=== PATIENT | female | born 2000 | race Caucasian/White ===

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

== ENCOUNTER 2022-05-24 15:02 | Emergency (ER) | payer BC, SELFPAY ==
--- NOTE | 2022-05-24 15:08 | ED.URI ---
HPI - URI/Sore Throat General Chief Complaint: Upper Respiratory Infection Stated Complaint: sorethroat Time Seen by Provider: 05/24/22 15:08 Source: patient Mode of arrival: ambulatory Limitations: no limitations History of Present Illness HPI Narrative: Rhiannon is a 21-year-old female patient presenting to the clinic today with complaints of a sore throat. She reports sore throat and congestion starting yesterday. She states she usually gets strep throat every 1 to 2 years. She has not recently been treated with antibiotics. She denies fever, chills, nausea, vomiting, shortness of breath, chest pain, ear pain, cough, contact with other sick people. 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 Related Data Allergies Allergy/AdvReac Type Severity Reaction Status Date / Time Penicillins Allergy Unknown Verified 05/24/22 15:21 Review of Systems Review of Systems: Pertinent positives per HPI. Patient denies any fever, chills, rash, headache, visual changes, dizziness, cough, shortness of breath, chest pain, palpitations, nausea, vomiting, diarrhea, constipation, abdominal pain, or any urinary issues. PMFSH Past Medical History Medical History IBS (irritable bowel syndrome) Surgical History Surgical History No pertinent past surgical history Social History Social History Smoking status: Never smoker Gender identity (if verbalized by the patient): Female Sexual Orientation (if Verbalized by the Patient): Straight or Heterosexual Comments At the time of my signature, I reviewed and agree with the nursing past medical, surgical, social, and family history. There is no relevant family history pertinent to the patient complaint. Exam Narrative: General: Well-developed, well nourished, in no apparent distress Head: Normocephalic, atraumatic Eyes: Pupils equally round and reactive to light bilaterally, EOM intact, sclera and conjunctive clear, no discharge, lids normal Ears: TMs intact and clear, ear canals clear, no drainage, grossly hearing normal. Nose: Nares patent, small amount of clear discharge, no inflammation, no sinus tenderness. Mouth: Oropharynx without lesions or masses, good dentition, MMM, bilateral 2+ edema and erythema to the tonsils without exudate. Neck: Supple, trachea midline, no enlargement of anterior or posterior cervical nodes, no thyroid masses or goiter palpable. Cardio: Regular rate and rhythm, s1 and s2 normal, no murmur appreciated. Resp: Clear to auscultation bilaterally anteriorly and posteriorly, no rhonchi, rales, wheezing or rubs Course Course Emergency Course: Portions of this record may have been created with voice recognition software. Level of Care: Express Care Visit Vital Signs Vital signs: Vital Signs Temperature 37.0 C 05/24/22 15:15 Pulse Rate 102 H 05/24/22 15:15 Respiratory Rate 18 05/24/22 15:15 Blood Pressure 125/75 05/24/22 15:15 Pulse Oximetry 100 05/24/22 15:15 Oxygen Delivery Room Air 05/24/22 15:15 Temperature 37.0 C 05/24/22 15:15 Pulse Rate 102 H 05/24/22 15:15 Respiratory Rate 18 05/24/22 15:15 Blood Pressure 125/75 05/24/22 15:15 Pulse Oximetry 100 05/24/22 15:15 Oxygen Delivery Room Air 05/24/22 15:15 Vital signs reviewed MDM - URI/Sore Throat MDM Narrative Medical decision making narrative: At the time of visit patient is resting comfortably on the exam table. The patient presents with sore throat and reports yearly strep throat infections. 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 Her strep test today was positive. She is allergic to penicillin, and had hives the last time she took it. I will treat her today with azithromycin. The patient was given instructions to refrain from going to her job and being around others until she h
[2022-05-24 15:15] VITALS: BP 125/75; PULSE 102; RESP 18; TEMP 37; O2SAT 100
== END 2022-05-24 15:50 | disposition home or self-care (01) ==
PROVIDERS: Emergency Provider Nurse Practitioner Family; PCP Family Medicine
DX: J02.0 Streptococcal pharyngitis (principal)
CPT/HCPCS: 87880; 99213; G0463

== ENCOUNTER 2022-07-19 15:14 | Emergency (ER) | payer BC, SELFPAY ==
[2022-07-19 15:21] VITALS: BP 136/88; PULSE 79; RESP 18; TEMP 36.6; O2SAT 98
--- NOTE | 2022-07-19 19:07 | ED.GENADULT ---
HPI - General Adult General Chief complaint: Head Injury Stated complaint: Head Injury Time Seen by Provider: 07/19/22 17:27 History of Present Illness HPI narrative: This is a 22-year-old female presenting ED after a head injury. Patient was trying to take down a picture frame last night when it fell onto her head. It knocked her to the ground. She states that she lost consciousness. Denies use of blood thinners. she denies nausea and vomiting after the incident. Per her boyfriend who is in the room she has been acting normal throughout the day. When she woke up this morning she said that she had some spots in her vision of her right eye. This quickly resolved and since then she has had no issues. She came into the emergency department because she was worried that it was due to the frame falling on her head. Patient is complaining of a bitemporal headache. She has no neurologic deficits. She has no other complaints. Related Data Allergies Allergy/AdvReac Type Severity Reaction Status Date / Time Penicillins Allergy Unknown Verified 07/19/22 15:24 Review of Systems Review of Systems: CONSTITUTIONAL: Denies night sweats. EYES: No eye pain ENT: Denies rhinorrhea CARDIOVASCULAR: Denies palpitations RESPIRATORY: Denies hemoptysis GASTROINTESTINAL: Denies hematemesis GENITOURINARY: Denies hematuria. SKIN: Denies rash MUSCULOSKELETAL: Denies myalgia. NEUROLOGIC: Denies weakness. PSYCHIATRIC: Denies delusions PMFSH Past Medical History Medical History IBS (irritable bowel syndrome) Surgical History Surgical History No pertinent past surgical history Social History Social History Smoking status: Never smoker Gender identity (if verbalized by the patient): Female Sexual Orientation (if Verbalized by the Patient): Straight or Heterosexual Exam Narrative: APPEARANCE: No apparent distress. Head atraumatic. EYES: PERRLA/EOMI, Visual acuity is 20/15 in both eyes, . physical exam of the eyes unremarkab NOSE: Normal no drainage NECK: Supple, Trachea midline RESPIRATORY: CTAB, No increased work of breathing. CARDIOVASCULAR: S1S2 appreciated ABDOMINAL: Soft, nontender, nondistended, MUSCULOSKELETAl: No obvious deformities NEURO: Alert. Cranial nerves 2-12 grossly intact. Sensation light touch, motor function cerebellar function intact for 4 extremities. Gait exam was normal. SKIN:: Warm, dry. Normal color PSYCHIATRIC: Normal affect Course Vital Signs Vital signs: Vital Signs Temperature 98 F 07/19/22 15:21 Pulse Rate 79 07/19/22 15:21 Respiratory Rate 18 07/19/22 15:21 Blood Pressure 136/88 07/19/22 15:21 Pulse Oximetry 98 07/19/22 15:21 Temperature 98 F 07/19/22 15:21 Pulse Rate 79 07/19/22 15:21 Respiratory Rate 18 07/19/22 15:21 Blood Pressure 136/88 07/19/22 15:21 Pulse Oximetry 98 07/19/22 15:21 Oxygen Delivery Room Air 07/19/22 17:32 Medical Decision Making MDM Narrative Medical decision making narrative: This is a 22-year-old female presenting to the ED after minor head trauma. per the [place] CT rules patient does not require CT of her head. The patient did have some spots in her right eye that quickly resolved when she woke up. Does not bother her throughout the day and she is currently asymptomatic. The patient can follow up with ophthalmology on an outpatient basis. Vital Signs Vital Signs: Vital Signs Temperature 98 F 07/19/22 15:21 Pulse Rate 79 07/19/22 15:21 Respiratory Rate 18 07/19/22 15:21 Blood Pressure 136/88 07/19/22 15:21 Pulse Oximetry 98 07/19/22 15:21 Temperature 98 F 07/19/22 15:21 Pulse Rate 79 07/19/22 15:21 Respiratory Rate 18 07/19/22 15:21 Blood Pressure 136/88 07/19/22 15:21 Pulse Oximet
[2022-07-19 19:41] VITALS: BP 110/78; PULSE 80; RESP 14; O2SAT 100
== END 2022-07-19 19:42 | disposition home or self-care (01) ==
PROVIDERS: Emergency Provider Emergency Medicine; PCP Family Medicine
DX: S09.90XA Unspecified injury of head, initial encounter (principal); K58.9 Irritable bowel syndrome, unspecified; W20.8XXA Other cause of strike by thrown, projected or falling object, initial encounter
CPT/HCPCS: 99283

== ENCOUNTER 2022-08-15 12:30 | Emergency (ER) | payer BC, SELFPAY ==
[2022-08-15] VITALS (9 sets, daily range): BP systolic 101–124; BP diastolic 60–70; PULSE 92–133; RESP 14–21; TEMP 38.3; O2SAT 98–100
[2022-08-15 13:52] LABS: Influenza A QL RT-PCR Positive (Negative); Influenza B QL RT-PCR Negative (Negative); SARS-CoV-2 RNA PCR Negative
--- NOTE | 2022-08-15 14:49 | ED.FEVER ---
HPI - Fever General Chief Complaint: Fever Stated Complaint: fever, SOB, headache Time Seen by Provider: 08/15/22 14:11 History of Present Illness HPI Narrative: 22-year-old female presented to the emergency department for evaluation of flulike symptoms since Tuesday. Patient reports cough and congestion and intermittent chest pain. Patient describes the chest pain as sharp and pleuritic in nature. Patient states due to these symptoms she has had decreased sleep over the last few days. Patient reports she has also been having intermittent fevers with high of 103.7. Patient has been treating this with ibuprofen at home. Patient reports he does have history of IBS. Patient does take trazodone at nighttime to help sleep. Related Data Allergies Allergy/AdvReac Type Severity Reaction Status Date / Time Penicillins Allergy Unknown Verified 07/19/22 15:24 Review of Systems Review of Systems: CONSTITUTIONAL: See HPI EYES: Denies visual changes, redness, or discharge. ENT: See HPI CARDIOVASCULAR: Tachycardia RESPIRATORY: Denies cough or dyspnea. GASTROINTESTINAL: Denies abdominal pain, nausea, vomiting, or diarrhea. GENITOURINARY: Denies dysuria or hematuria. SKIN: Denies rash or itching. MUSCULOSKELETAL: Denies back pain, joint pain, or myalgia. NEUROLOGIC: Denies headache, numbness, or weakness. [facility] Past Medical History Medical History IBS (irritable bowel syndrome) Surgical History Surgical History No pertinent past surgical history Social History Social History Smoking status: Never smoker Gender identity (if verbalized by the patient): Female Sexual Orientation (if Verbalized by the Patient): Straight or Heterosexual Exam Narrative: APPEARANCE: Well appearing, no pain, no distress, well-nourished. HEAD: normocephalic, atraumatic. EYES: PERRLA/EOMI, conjunctivae clear. NOSE: Normal no drainage EARS:TMS clear with good light reflex. THROAT: Pharynx clear, no exudate. NECK: Supple. No adenopathy, no masses. RESPIRATORY: Airway patent, respirations nonlabored. Clear to auscultation bilaterally, no rales, rhonchi, wheezing. CARDIOVASCULAR: Regular rate and rhythm without murmurs rubs or gallops. ABDOMINAL: Soft, nontender, nondistended, normal bowel sounds MUSCULOSKELETAL: Moves all extremities. Strength/ROM intact, No edema, No calf tenderness. NEURO: Alert. Cranial nerves II through XII intact. Grossly intact SKIN: Warm, dry. Normal Color Course SAND SIFTER/PA Physician Supervision Patient's heart rate improved with treatment. Patient did test positive for influenza A. Patient was updated on the results of her work-up. All questions concerns were addressed. Vital Signs Vital signs: Vital Signs Temperature 101 F H 08/15/22 13:04 Pulse Rate 133 H 08/15/22 13:04 Respiratory Rate 14 08/15/22 13:04 Blood Pressure 101/60 08/15/22 13:04 Pulse Oximetry 98 08/15/22 13:04 Oxygen Delivery Room Air 08/15/22 13:04 Temperature 101 F H 08/15/22 13:04 Pulse Rate 92 08/15/22 15:47 Respiratory Rate 16 08/15/22 15:47 Blood Pressure 124/68 08/15/22 15:47 Pulse Oximetry 100 08/15/22 15:47 Oxygen Delivery Room Air 08/15/22 13:04 MDM - Fever Lab Data Labs: Lab Results 08/15/22 Range/Units 13:09 Influenza A (RT-PCR) Positive (Negative) Influenza B (RT-PCR) Negative (Negative) SARS-CoV-2 RNA (RT-PCR) Negative Discharge Plan Discharge Clinical Impression: Influenza A Patient Disposition: Home, Self-Care Condition: Stable Instructions: Antibiotic Form, Influenza (ED) Additional Instructions: Tylenol and ibuprofen for fever and for body aches. Albuterol inhaler for cough and congestion. Tessalon Perles for cough. Have close follow-up with your primary care phys
[2022-08-15] MEDS: SODIUM CHLORIDE 0.9% IV 1,000 ML 999 ML IV CONT (14:58)
== END 2022-08-15 16:07 | disposition home or self-care (01) ==
PROVIDERS: Emergency Medicine; Emergency Provider Emergency Medicine; PCP Family Medicine
DX: J10.1 Influenza due to other identified influenza virus with other respiratory manifestations (principal); Z20.822 Contact with and (suspected) exposure to COVID-19; K58.9 Irritable bowel syndrome, unspecified
CPT/HCPCS: 87636; 96374; 99284; J0131; J7030

== ENCOUNTER 2022-08-17 10:04 | Emergency (ER) | payer BC, SELFPAY ==
--- NOTE | ~2022-08-17 | XR_ITS ---
EXAMINATION: XR chest 2V 08/17/2022 10:35 INDICATION: Midsternal chest pain PROCEDURE: 2 view chest COMPARISON: No prior studies for comparison. FINDINGS: The lungs are clear. The cardiomediastinal silhouette is within normal limits. There are no pleural effusions. There is no pneumothorax suspected. IMPRESSION: 1: NO ACUTE CARDIOPULMONARY DISEASE. Reviewed, dictated and finalized at location B. HIATRIC ORDERLY
--- NOTE | 2022-08-17 10:06 | ECG_ITS ---
Measurements Intervals [place] Rate: 97 P: 63 VA: 129 QRS: 51 QRSD: 82 T: 5 QT: 328 QTc: 417 Interpretive Statements SINUS RHYTHM DELAYED PRECORDIAL R/S TRANSITION BORDERLINE ST-T WAVE ABNORMALITY- INFERIOR LEADS BASELINE ARTIFACT- I, II, III BORDERLINE ECG NO PREVIOUS ECG AVAILABLE FOR COMPARISON Electronically Signed On 08-17-2022 14:01:52 DIRECTOR OF MEDICAL REVIEW by Mg Whitfield D.O.
[2022-08-17 10:15] VITALS: PULSE 94; RESP 17; O2SAT 100
[2022-08-17 10:16] VITALS: BP 135/91; PULSE 96; RESP 12; TEMP 37.2; O2SAT 100
[2022-08-17 10:25] VITALS: PULSE 88; RESP 18; O2SAT 100
[2022-08-17 10:44] LABS: Eosinophils Percent Auto 0.3 % (0-4.4); Hematocrit 37.6 % (37.0-47.0); Hemoglobin 12.4 g/dL (12.0-15.0); Immature Granulocyte Absolute 0.01 K/mm3 (0.00-0.031); Immature Granulocyte Percent A 0.3 % (0-0.5); Lymphocytes Absolute Auto 1.55 K/mm3 (0.9-3.2); Lymphocytes Percent Auto 51.8 % (18.3-44.2); Mean Corpuscular Hemoglobin 28.4 pg (26-34); Mean Platelet Volume 11.2 fl (7.4-10.4); Monocytes Absolute Auto 0.6 K/mm3 (0.1-0.6); Monocytes Percent Auto 19.7 % (2.6-8.5); Neutrophils Absolute Auto 0.8 K/mm3 (1.3-6.7); Neutrophils Percent Auto 27.9 % (45.5-73.1); Platelet Count Result 160 k/mm3 (150-375); Red Blood Count 4.37 M/mm3 (4.2-5.4); Red Cell Distribution Width 13.3 % (11.5-14.5)
[2022-08-17 10:46] VITALS: PULSE 83; RESP 13; O2SAT 100
[2022-08-17 10:51] LABS: Prothrombin Time 13.1 Seconds (11.1-14.7)
[2022-08-17 10:52] LABS: Partial Thromboplastin Time 34.7 SECONDS (22.3-36.8)
[2022-08-17 10:58] LABS: Alanine Aminotransferase 17 U/L (6-35); Alkaline Phosphatase 43 U/L (38-126); Anion Gap 10 mmol/L (8-16); Aspartate Amino Transferase 24 U/L (14-36); Bilirubin,Total 0.2 mg/dL (0.2-1.3); Blood Urea Nitrogen 11 mg/dL (7-17); Calcium 8.7 mg/dL (8.4-10.2); Carbon Dioxide 28 mmol/L (22-30); Chloride 102 mmol/L (98-107); Estimated CRCL calculation 87 ml/min; Estimated Glomerular Filt Rate > 60; Glucose 88 mg/dL (65-110); Lipase 102 U/L (23-300); Potassium 3.8 mmol/L (3.4-5.0); Sodium 140 mmol/L (137-145)
[2022-08-17 11:09] LABS: Troponin I < 0.012 ng/mL (0.000-0.034)
--- NOTE | 2022-08-17 11:28 | ED.GENADULT ---
HPI - General Adult General Chief complaint: Chest Pain Stated complaint: chest pains, seen here Tuesday Time Seen by Provider: 08/17/22 10:17 History of Present Illness HPI narrative: 22-year-old female presents to our department for evaluation of constant, sharp, anterior chest wall pain which radiates around to her back. Pain is constant and worsens with movement or palpation. Pain is reproducible on exam. No exertional component, nausea, shortness of breath. She is otherwise healthy. Related Data Allergies Allergy/AdvReac Type Severity Reaction Status Date / Time Penicillins Allergy Unknown Verified 07/19/22 15:24 Review of Systems Review of Systems: CONSTITUTIONAL: Denies fever, chills, or sweats. EYES: Denies visual changes, redness, or discharge. ENT: Denies rhinorrhea, congestion, sore throat, or otalgia. CARDIOVASCULAR: Denies chest pain, palpitations, or edema. RESPIRATORY: Denies cough or dyspnea. GASTROINTESTINAL: Denies abdominal pain, nausea, vomiting, or diarrhea. GENITOURINARY: Denies dysuria or hematuria. SKIN: Denies rash or itching. MUSCULOSKELETAL: Denies back pain, joint pain, or myalgia. NEUROLOGIC: Denies headache, numbness, or weakness. PSYCHIATRIC: Denies anxiety or depression. [facility] Past Medical History Medical History IBS (irritable bowel syndrome) Surgical History Surgical History No pertinent past surgical history Social History Social History Smoking status: Never smoker Gender identity (if verbalized by the patient): Female Sexual Orientation (if Verbalized by the Patient): Straight or Heterosexual Exam Narrative: GENERAL: Well-appearing, well-nourished, and in no acute distress. HEAD: Normocephalic, atraumatic. EYES: PERRLA and EOMI. ENT: Nares clear, no rhinorrhea or epistaxis. Mucous membranes moist. NECK: Supple. CHEST: Clear to auscultation. No respiratory distress. HEART: Regular rate and rhythm. No murmur heard. Normal peripheral pulses. ABDOMEN: Soft, nontender, nondistended, normal active bowel sounds. EXTREMITIES: Normal range of motion. No edema. SKIN: Warm, dry, no rash. NEURO: No focal deficits. Alert and oriented x3. PSYCH: Normal mood and affect. Course Vital Signs Vital signs: Vital Signs Pulse Rate 94 08/17/22 10:15 Respiratory Rate 17 08/17/22 10:15 Pulse Oximetry 100 08/17/22 10:15 Temperature 98.9 F 08/17/22 10:16 Pulse Rate 83 08/17/22 10:46 Respiratory Rate 13 08/17/22 10:46 Blood Pressure 135/91 H 08/17/22 10:16 Pulse Oximetry 100 08/17/22 10:46 Medical Decision Making MDM Narrative Medical decision making narrative: Atypical, reproducible chest pain consistent with costochondritis. Will give IV Tylenol patient is stable for DC home where she will take ibuprofen for her symptoms. Vital Signs Vital Signs: Vital Signs Pulse Rate 94 08/17/22 10:15 Respiratory Rate 17 08/17/22 10:15 Pulse Oximetry 100 08/17/22 10:15 Temperature 98.9 F 08/17/22 10:16 Pulse Rate 83 08/17/22 10:46 Respiratory Rate 13 08/17/22 10:46 Blood Pressure 135/91 H 08/17/22 10:16 Pulse Oximetry 100 08/17/22 10:46 Lab Data Result diagrams: 08/17/22 10:29 08/17/22 10:29 Labs: Lab Results 08/17/22 08/17/22 08/17/22 Range/Units 10:29 10:29 10:30 WBC 3.0 L (4.5-10.0) K/mm3 RBC 4.37 (4.2-5.4) M/mm3 Hgb 12.4 (12.0-15.0) g/dL Hct 37.6 (37.0-47.0) % MCV 86.0 (80-100) fl MCH 28.4 (26-34) pg MCHC 33.0 (32-36) g/dl RDW 13.3 (11.5-14.5) % Plt Count 160 (150-375) k/mm3 MPV 11.2 H (7.4-10.4) fl Immature Gran % (Auto) 0.3 (0-0.5) % Neut % (Auto) 27.9 L (45.5-73.1) % Lymph % (Auto) 51.8 H (18.3-44.2) % [place] % (Auto) 19.7 H
== END 2022-08-17 12:18 | disposition home or self-care (01) ==
PROVIDERS: Emergency Provider Emergency Medicine; PCP Family Medicine
DX: R07.89 Other chest pain (principal)
CPT/HCPCS: 36415; 71046; 80053; 83690; 84484; 85025; 85610; 85730; 93005; 99284

== ENCOUNTER 2022-09-04 08:14 | Emergency (ER) | payer OTHER, SELFPAY ==
[2022-09-04 08:40] VITALS: BP 112/79; PULSE 99; RESP 18; TEMP 35.9; O2SAT 100
--- NOTE | 2022-09-04 08:45 | ED.URI ---
HPI - URI/Sore Throat General Stated Complaint: sore throat,ear pressure Time Seen by Provider: 09/04/22 09:03 Source: patient and RN notes reviewed Mode of arrival: ambulatory Limitations: no limitations History of Present Illness HPI Narrative: 22-year-old female presents with concern for sore throat, ear pressure. She reports symptoms started yesterday. She reports occasional cough. She reports body aches. 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 MD elicited complaint: sore throat Related Data Home Medications Medication Instructions Recorded Confirmed trazodone 50 mg PO DAILY 09/04/22 09/04/22 Allergies Allergy/AdvReac Type Severity Reaction Status Date / Time Penicillins Allergy Unknown Verified 07/19/22 15:24 Review of Systems Review of Systems: CONSTITUTIONAL: Reports malaise EYES: Denies visual changes, redness, or discharge. ENT: Denies rhinorrhea, congestion, sinus pain, otalgia. Reports sore throat. CARDIOVASCULAR: Denies chest pain, palpitations, or edema. RESPIRATORY: Reports occasional cough. Denies dyspnea. GASTROINTESTINAL: Denies abdominal pain, nausea, vomiting, diarrhea SKIN: Denies rash or itching. MUSCULOSKELETAL: Reports myalgia. NEUROLOGIC: Denies headache. All systems reviewed & are unremarkable except as noted in HPI and below PMFSH Past Medical History Medical History IBS (irritable bowel syndrome) Surgical History Surgical History No pertinent past surgical history Social History Social History Smoking status: Never smoker Gender identity (if verbalized by the patient): Female Sexual Orientation (if Verbalized by the Patient): Straight or Heterosexual Comments At time of signature, agree with nursing past medical, surgical, social and family history. There is no relevant family history pertinent to the presenting complaint Exam Narrative: GENERAL: Well-appearing, well-nourished, and in no acute distress. HEAD: Normocephalic EYES: PERRLA, conjunctivae clear ENT: Nares clear. Mucous membranes moist. TM pearly gonzalez with sharp light reflex bilaterally; no tragal tenderness. Oropharynx erythematous without lesions. Tonsils not enlarged and without exudate, no drooling, no hoarseness, no trismus, uvula midline. NECK: Supple. No lymphadenopathy CHEST: Clear to auscultation, breath sounds equal. No wheezing, rhonchi, rales, or stridor. No respiratory distress, speaks in full sentences. HEART: Regular rate and rhythm. No murmur heard. SKIN: Warm, dry, no rash. NEURO: Alert and oriented x3. PSYCH: Normal mood and affect Course Course Emergency Course: Patient is aware of diagnosis, understands and agrees to treatment plan. Anticipatory guidance given. Patient agrees to follow-up as directed and is aware of reasons to seek care at the emergency department. Portions of this record may have been created with voice recognition software Level of Care: Express Care Visit Vital Signs Vital signs: Reviewed. MDM - URI/Sore Throat MDM Narrative Medical decision making narrative: Differential diagnosis considered: Rogers virus, strep pharyngitis, allergic rhinitis, upper respiratory tract infection, sinusitis, rhinosinusitis, nasopharyngitis. viral pharyngitis, otitis media, otitis externa, pneumonia, bronchitis, viral cough syndrome, viral syndrome, and influenza. Exam findings show no acute concerns or changes; patient is non-toxic appearing and is in no distress. Patient is appropriate for outpatient treatment and follow-up. Lab Data Attestation: I reviewed the patient's lab results. Critical Care Time Critical Care Time Critical Care Time: No Discharge Plan Discharge Prescriptions: No Action ibuprofen 800 mg tablet 800 mg PO TID PRN (Reason: pain) 7 Days Qty: 21 0RF acetaminophe
== END 2022-09-04 09:28 | disposition home or self-care (01) ==
PROVIDERS: Emergency Provider Nurse Practitioner; PCP Family Medicine
DX: J06.9 Acute upper respiratory infection, unspecified (principal)
CPT/HCPCS: 87081; 87880; 99213; G0463

== ENCOUNTER 2022-09-06 17:56 | Emergency (ER) | payer OTHER, SELFPAY ==
--- NOTE | ~2022-09-06 | CT_ITS ---
EXAMINATION: CT abdomen pelvis w con DATE: 09/07/2022 02:20 INDICATION: Right lower quadrant abdominal pain. Nausea, vomiting, and diarrhea. TECHNIQUE: Computed tomography (CT) of the abdomen and pelvis was performed with 100 mL Omnipaque 350 intravenous contrast. Automated exposure control and iterative reconstruction technique were employe d. The dose-length product was 269.75 mGy-cm. COMPARISON: CT abdomen and pelvis 12/31/2020, pelvis ultrasound 09/07/2022 FINDINGS: The visualized portions of the lung bases demonstrate minimal atelectasis. No pleural effus ion. The heart size is normal. No pericardial effusion. The liver, gallbladder, spleen, pancreas, adr enal glands, and kidneys are normal. There are no dilated loops of bowel. The appendix is normal. The re is a 3.7 cm mass in the right ovary measuring greater than simple fluid in attenuation. There is p hysiologic fluid in the pelvis. There are no pathologically enlarged lymph nodes. The bones are unrem arkable. IMPRESSION: 1. 3.7 cm mass in right ovary, most likely a hemorrhagic cyst. Pelvis ultrasound is recommended in 6- 12 weeks. Reviewed, dictated and finalized at location A. ACORPOREAL TECHNICIAN IMPRESSION: 1. 3.7 cm mass in right ovary, most likely a hemorrhagic cyst. Pelvis ultrasoun d is recommended in 6-12 weeks.
--- NOTE | ~2022-09-06 | US_ITS ---
EXAMINATION: US pelvic complete w TV DATE: 09/07/2022 05:06 INDICATION: Right lower quadrant abdominal pain. TECHNIQUE: Multiple transabdominal and transvaginal sonographic images of the pelvis were obtained. COMPARISON: CT abdomen and pelvis 09/07/2022, 12/31/2020 FINDINGS: TRANSABDOMINAL ULTRASOUND: The uterus measures 6.9 x 2.7 x 3.8 cm. There is physiologic free fluid in the pelvis. TRANSVAGINAL ULTRASOUND: The endometrial complex measures 9 mm in thickness. The right ovary measures 5.1 x 3.8 x 3.3 cm. Ther e is vascular flow in right ovary. In the right ovary, there is a 3.4 cm hypoechoic mass. The left ov poppy is not visualized. IMPRESSION: 1. 3.4 cm hypoechoic mass in right ovary, new from 12/31/2020, most likely a hemorrhagic cyst. Pelvis u ltrasound is recommended in 6-12 weeks. Reviewed, dictated and finalized at location A. K AND TILE MAKING MACHINE OPERATOR IMPRESSION: 1. 3.4 cm hypoechoic mass in right ovary, new from 12/31/2020, most likely a hemo rrhagic cyst. Pelvis ultrasound is recommended in 6-12 weeks.
[2022-09-06 18:11] VITALS: BP 107/69; PULSE 121; RESP 16; TEMP 37.9; O2SAT 100
[2022-09-06 18:52] LABS: Basophils Percent Auto 0.4 % (0.2-1.2); Eosinophils Percent Auto 0.7 % (0-4.4); Hematocrit 36.3 % (37.0-47.0); Immature Granulocyte Absolute 0.01 K/mm3 (0.00-0.031); Immature Granulocyte Percent A 0.2 % (0-0.5); Lymphocytes Absolute Auto 1.44 K/mm3 (0.9-3.2); Lymphocytes Percent Auto 25.7 % (18.3-44.2); Mean Corpuscular HGB Conc 33.1 g/dl (32-36); Mean Corpuscular Hemoglobin 28.7 pg (26-34); Mean Corpuscular Volume 86.8 fl (80-100); Mean Platelet Volume 11.9 fl (7.4-10.4); Monocytes Absolute Auto 0.5 K/mm3 (0.1-0.6); Monocytes Percent Auto 9.5 % (2.6-8.5); Neutrophils Absolute Auto 3.6 K/mm3 (1.3-6.7); Neutrophils Percent Auto 63.5 % (45.5-73.1); Platelet Count Result 154 k/mm3 (150-375); Red Blood Count 4.18 M/mm3 (4.2-5.4); Red Cell Distribution Width 13.2 % (11.5-14.5); White Blood Count 5.6 K/mm3 (4.5-10.0)
[2022-09-06 19:18] LABS: Alanine Aminotransferase 16 U/L (6-35); Albumin Level 4.2 g/dL (3.5-5.1); Alkaline Phosphatase 55 U/L (38-126); Anion Gap 7 mmol/L (8-16); Aspartate Amino Transferase 22 U/L (14-36); Bilirubin,Total 0.6 mg/dL (0.2-1.3); Blood Urea Nitrogen 7 mg/dL (7-17); Carbon Dioxide 28 mmol/L (22-30); Chloride 101 mmol/L (98-107); Estimated CRCL calculation 100 ml/min; Estimated Glomerular Filt Rate > 60; Glucose 89 mg/dL (65-110); Lipase 24 U/L (23-300); Potassium 3.5 mmol/L (3.4-5.0); Sodium 136 mmol/L (137-145)
[2022-09-07 00:53] VITALS: BP 120/67; PULSE 91; RESP 18; TEMP 36.4; O2SAT 100
[2022-09-07 01:02] LABS: Appearance Urine Cloudy (Clear); Bilirubin Urine 1+ (Negative); Blood Urine Negative (Negative); Color Urine Yellow (Yellow); Glucose Urine UA Negative (Negative); Ketones Urine 2+ mg/dL (Negative); Leukocyte Esterase Ur Negative LEU/UL (Negative); Nitrate Urine Negative (Negative); Protein Urine Negative (Negative); Specific Grav Ur >= 1.030 (1.001-1.035); Urobilinogen Urine 0.2 mg/dL (<2.0); pH Urine 5.5 (5.0-9.0)
[2022-09-07 01:07] LABS: Bacteria Urine Trace /hpf; Mucus Urine Heavy /lpf; RBC Urine 0-2 /hpf (0-2); Squamous Epithelial Cell Urine Moderate /hpf (Few); WBC Urine 0-3 /hpf
[2022-09-07 01:12] LABS: Add Urine Microscopic? YES
--- NOTE | 2022-09-07 01:27 | ED.ABDPAIN ---
HPI - Abdominal Pain General Chief Complaint: Abdominal Pain <THEA Castro Last Filed: 09/07/22 04:02> Stated Complaint: FEVER,RLQ ABD PAIN,N/V <THEA Castro Last Filed: 09/07/22 04:02> Time Seen by Provider: 09/07/22 00:51 <THEA Castro Last Filed: 09/07/22 04:02> Source: patient <THEA Castro Last Filed: 09/07/22 04:02> Mode of arrival: ambulatory <THEA Castro Last Filed: 09/07/22 04:02> Limitations: no limitations <THEA Castro Last Filed: 09/07/22 04:02> History of Present Illness HPI narrative: Patient is a 22 y/o female who presents to the ED with c/o RLQ abdominal pain. Patient reports the pain began the morning of 09/06. Pain is located in right lower abdomen and radiates up her right side and across her upper abdomen. She also reports having a fever, nausea, vomiting, dysuria today. She took Tylenol and Ibuprofen around 4 pm w/ minimal improvement of pain. Patient has had a sinus infection with cough, congestion over the past 1 week. Denies CP, SOB. <THEA Castro Last Filed: 09/07/22 04:02> Related Data Home Medications: Home Medications Medication Instructions Recorded Confirmed trazodone 50 mg PO DAILY 09/04/22 09/04/22 <THEA Castro Last Filed: 09/07/22 04:02> Allergies/Adverse Reactions: Allergies Allergy/AdvReac Type Severity Reaction Status Date / Time Penicillins Allergy Unknown Verified 07/19/22 15:24 amoxicillin AdvReac Rash Verified 09/07/22 01:19 <THEA Castro Last Filed: 09/07/22 04:02> Review of Systems Review of Systems: CONSTITUTIONAL: Reports fever. EYES: Denies visual changes. ENT: Reports rhinorrhea, congestion. CARDIOVASCULAR: Denies chest pain. RESPIRATORY: Reports cough. Denies dyspnea. GASTROINTESTINAL: Reports abdominal pain, nausea, vomiting. Denies diarrhea. GENITOURINARY: Reports dysuria. Denies hematuria. SKIN: Denies rash or itching. MUSCULOSKELETAL: Denies back pain, joint pain, or myalgia. NEUROLOGIC: Denies headache, numbness, or weakness. <Jody Hawk PA-C - Last Filed: 09/07/22 04:02> All systems reviewed & are unremarkable except as noted in HPI and below <Jody Hakw PA-C - Last Filed: 09/07/22 04:02> PMFSH Past Medical History Medical History: Medical History IBS (irritable bowel syndrome) <Jody Hawk PA-C - Last Filed: 09/07/22 04:02> Surgical History Surgical History: Surgical History No pertinent past surgical history <Jody Hawk PA-C - Last Filed: 09/07/22 04:02> Social History Social History: Social History Smoking status: Never smoker Gender identity (if verbalized by the patient): Female Sexual Orientation (if Verbalized by the Patient): Straight or Heterosexual <Jody Hawk PA-C - Last Filed: 09/07/22 04:02> Exam Narrative: GENERAL: Well appearing, well-nourished, non-toxic, in no acute distress. HEAD: Normocephalic, atraumatic. NECK: Supple. No adenopathy, no masses. RESPIRATORY: Airway patent, respirations nonlabored. Clear to auscultation bilaterally, no rales, rhonchi, wheezing. CARDIOVASCULAR: Regular rate and rhythm without murmurs, rubs, or gallops. Peripheral pulses 2+ and equal bilaterally. ABDOMINAL: Soft, mild tenderness to palpation throughout R sided abdomen, nondistended, no hepatosplenomegaly. Normoactive BS. MUSCULOSKELETAL: Moves all extremities. Strength/ROM intact without gross deformities. SKIN: Warm, dry, normal color. No rashes. NEURO: A&O X3. Speech clear. Cranial nerves II-XII grossly intact. Steady gait. No ataxic movements. PSYCHIATRIC: Appropriate mood and affect. Normal int
[2022-09-07] MEDS: SODIUM CHLORIDE 0.9% IV 1,000 ML 999 ML IV CONT (01:44)
[2022-09-07] MEDS: ONDANSETRON INJ 4 MG/2 ML VIAL IV PUSH (01:45)
[2022-09-07 02:29] LABS: Influenza A QL RT-PCR Negative (Negative); Influenza B QL RT-PCR Negative (Negative); SARS-CoV-2 RNA PCR Negative
[2022-09-07 04:15] VITALS: BP 101/66; PULSE 85; RESP 18; O2SAT 99
--- NOTE | 2022-09-07 04:33 | PC.NURSE ---
Pt to US at this time.
--- NOTE | 2022-09-07 06:43 | PC.NURSE ---
EDP at bedside for pelvic exam
[2022-09-07] MEDS: DOXYCYCLINE HYCLATE 100 MG TABLET PO (07:35)
[2022-09-07] MEDS: metroNIDAZOLE 250 MG TABLET 500 MG PO (07:35)
[2022-09-07] MEDS: cefTRIAXone 1 GM VIAL 0.5 GM IM (07:35)
[2022-09-07] MEDS: LIDOCAINE HCL 1% PF 30 ML VIAL (07:45)
[2022-09-07 07:47] VITALS: BP 115/78; PULSE 80; RESP 16; O2SAT 100
== END 2022-09-07 07:47 | disposition home or self-care (01) ==
PROVIDERS: Emergency Medicine; Physician Assistant; Emergency Provider Emergency Medicine; PCP Family Medicine
DX: N73.0 Acute parametritis and pelvic cellulitis (principal); N83.201 Unspecified ovarian cyst, right side; K58.9 Irritable bowel syndrome, unspecified; Z20.822 Contact with and (suspected) exposure to COVID-19
CPT/HCPCS: 36415; 74177; 76830; 76856; 80053; 81001; 81025; 83690; 85025; 87491; 87591; 87636; 96361; 96365; 96372; 96375; 99284; A9270; J0131; J0696; J2405; J7030; Q9967

== ENCOUNTER 2022-11-09 19:36 | Emergency (ER) | payer OTHER, SELFPAY ==
--- NOTE | 2022-11-09 19:40 | ED.FEMALEGU ---
HPI - Female Genitourinary General Chief complaint: Urogenital-Female Stated complaint: Vaginal Problems/UTI Source: patient and RN notes reviewed Mode of arrival: ambulatory Limitations: no limitations History of Present Illness HPI Narrative: 22 y/o female presented for c/o vaginal and vaginal itching, onset today. States burning sensation is constant. Feels like previous yeast infections. Reports dark brown vaginal discharge, onset yesterday. She reports it is a moderate amount of discharge with foul odor. She also endorses mild right flank pain and nausea. She denies abdominal pain, vomiting, diarrhea, fevers or chills. She denies concern for STD. LMP ended 3 days ago. She has not had recent antibiotics. . Related Data Home Medications Medication Instructions Recorded Confirmed escitalopram oxalate 20 mg tablet 20 mg DAILY 11/09/22 11/09/22 Allergies Allergy/AdvReac Type Severity Reaction Status Date / Time Penicillins Allergy Unknown Verified 11/09/22 19:45 amoxicillin AdvReac Rash Verified 11/09/22 19:45 Review of Systems Review of Systems: per HPI. [facility] Past Medical History Medical History IBS (irritable bowel syndrome) Surgical History Surgical History No pertinent past surgical history Social History Social History Smoking status: Never smoker Gender identity (if verbalized by the patient): Female Sexual Orientation (if Verbalized by the Patient): Straight or Heterosexual Comments At time of signature, I have reviewed and agree with nursing past medical, surgical, social and family history unless otherwise noted. Please see nursing chart for further information. There is no relevant family history pertinent to the presenting complaint Exam Narrative: GENERAL: Well-appearing and in no acute distress. ENT: Mucous membranes pink and moist. NECK: Normal AROM. Supple. CHEST: No respiratory distress. Clear to auscultation. HEART: Regular rate and rhythm. ABDOMEN: Soft, nontender, nondistended, normal active bowel sounds. No suprapubic tenderness. mild right CVA tenderness SKIN: Warm, dry, no rash. NEURO: No focal deficits. Alert and oriented x3. Gait steady. Course Course Emergency Course: Patient is aware of diagnosis, understands and agrees to treatment plan. Anticipatory guidance given. Patient agrees to follow-up as directed and is aware of reasons to seek care at the emergency department. Portions of this record may have been created with voice recognition software Level of Care: Express Care Visit Vital Signs Vital signs: Vital Signs Temperature 97.4 F L 11/09/22 19:42 Pulse Rate 77 11/09/22 19:42 Respiratory Rate 12 11/09/22 19:42 Blood Pressure 121/66 11/09/22 19:42 Pulse Oximetry 100 11/09/22 19:42 Oxygen Delivery Room Air 11/09/22 19:42 Temperature 97.4 F L 11/09/22 19:46 Pulse Rate 77 11/09/22 19:46 Respiratory Rate 12 11/09/22 19:46 Blood Pressure 121/66 11/09/22 19:46 Pulse Oximetry 100 11/09/22 19:46 Oxygen Delivery Room Air 11/09/22 19:46 Reviewed MDM - Female Genitourinary MDM Narrative Medical decision making narrative: Urine dip negative, negative. Patient declined pelvic exam, or culture for BV/ yeast. Patient is advised at length that brown vaginal discharge is abnormal. She verbalizes understanding and would like urine sent for gonorrhea, chlamydia, Trichomonas, as well as the urine culture. requests to wait for the urine culture results for antibiotic treatment. Also declines treatment for STDs today. She states it feels like a yeast infection and would like treatment at this time. Advised supportive measures and signs/symptoms to go to the ER. Pt is appropriate for outpt treatment and f/u. Per notes patient
[2022-11-09 19:42] VITALS: BP 121/66; PULSE 77; RESP 12; TEMP 36.3; O2SAT 100
[2022-11-09 19:46] VITALS: BP 121/66; PULSE 77; RESP 12; TEMP 36.3; O2SAT 100
== END 2022-11-09 20:07 | disposition home or self-care (01) ==
PROVIDERS: Emergency Provider Nurse Practitioner Family; PCP Internal Medicine
DX: R10.2 Pelvic and perineal pain (principal)
CPT/HCPCS: 81003; 81025; 87086; 87491; 87591; 87661; 99214; G0463

== ENCOUNTER 2022-12-14 14:56 | Emergency (ER) | payer OTHER, SELFPAY ==
--- NOTE | ~2022-12-14 | XR_ITS ---
EXAMINATION: XR hand LT min 3V INDICATION: Left hand pain TECHNIQUE: Three views of the left hand are obtained. COMPARISON: None available FINDINGS: No fracture, dislocation, or subluxation. The bones and joint spaces are normal. There is m ild soft tissue swelling of the hand overlying the metacarpals. IMPRESSION: 1. No acute osseous abnormality. Reviewed, dictated and finalized at location L.
[2022-12-14 15:07] VITALS: BP 128/76; PULSE 87; RESP 16; TEMP 36.2; O2SAT 99
--- NOTE | 2022-12-14 15:33 | ED.UPPEXIN ---
HPI - Extremity Injury (Upper) General Chief Complaint: Extremity Injury, Upper Stated Complaint: left hand injury Time Seen by Provider: 12/14/22 15:33 Source: patient, RN notes reviewed and old records reviewed Mode of arrival: ambulatory Limitations: no limitations History of Present Illness HPI narrative: 22-year-old female presents to the [facility] with left hand pain after her were stepped on. Bruising with mild swelling noted to the dorsal aspect left hand. Full range of motion of all fingers, sensation intact in capillary refill under 2 seconds. Related Data Home Medications Medication Instructions Recorded Confirmed escitalopram oxalate 20 mg tablet 20 mg DAILY 11/09/22 11/09/22 spironolactone 100 mg tablet mg 12/14/22 trazodone 100 mg tablet mg 12/14/22 Allergies Allergy/AdvReac Type Severity Reaction Status Date / Time Penicillins Allergy Unknown Verified 12/14/22 15:15 amoxicillin AdvReac Rash Verified 12/14/22 15:15 Review of Systems Review of Systems: All systems reviewed & are unremarkable except as noted in HPI and below Constitutional: Constitutional: Reports no additional constitutional complaints Eyes: Eyes: Reports no additional eye complaints ENT: Reports system reviewed and no additional complaints, except as documented Cardiovascular: Cardiovascular: Reports no additional cardiovascular complaints, Denies chest pain and Denies dyspnea Respiratory: Respiratory: Reports no additional respiratory complaints, Denies chest congestion, Denies cough and Denies dyspnea Gastrointestinal: Gastrointestinal: Reports no additional gastrointestinal complaints, Denies abdominal pain, Denies nausea and Denies vomiting Musculoskeletal: Musculoskeletal: Reports as per HPI Integumentary/Breasts: Skin/Breast: Reports as per HPI Neurologic: Reports system reviewed and no additional complaints, except as documented Psychiatric: Psychiatric: Reports no additional psychiatric complaints Allergic/Immunologic: Allergic/Immunologic: Reports no additional allergic/immunologic complaints [facility] Past Medical History Medical History IBS (irritable bowel syndrome) Surgical History Surgical History No pertinent past surgical history Social History Social History Smoking status: Never smoker Gender identity (if verbalized by the patient): Female Sexual Orientation (if Verbalized by the Patient): Straight or Heterosexual Comments At the time of my signature, I reviewed and agree with the nursing past medical, surgical, social, and family history. There is no relevant family history pertinent to the patient complaint. Exam Const: General: cooperative, healthy appearing, comfortable, no acute distress, well developed, alert and well nourished Nutritional Appearance: well nourished Orientation/consciousness: patient oriented x3 Limitations: no limitations HENMT: Head: normal to inspection Ears: hearing grossly normal bilaterally and external ears normal Face/Nose/Sinus: Normal external nose present, Normal nares present, Normal nasal mucous membranes and turbinates present and normal facial exam Face and sinus: normal facial exam Mouth: Yes Normal oral and palatal mucosa present, Yes lip normal and Yes moist mucous membranes Eyes: General: appearance normal, both eyes and all related structures Alignment and Position: alignment normal Periorbital: periorbital findings normal Conjunctivae: conjunctivae normal Pupils: Equal, round and reactive pupils present EOM: EOMs intact bilaterally Neck: Neck: normal visual inspection, full ROM, no lymphadenopathy and no meningeal signs Chest: Chest palpation & inspection: normal inspection of the chest Resp: Effort & Inspection: normal respiratory effort and able to speak in complete sentences
== END 2022-12-14 15:45 | disposition home or self-care (01) ==
PROVIDERS: Emergency Provider Nurse Practitioner; PCP Family Medicine
DX: S60.222A Contusion of left hand, initial encounter (principal); X58.XXXA Exposure to other specified factors, initial encounter
CPT/HCPCS: 73130; 99213; G0463

== ENCOUNTER 2023-02-24 19:00 | Emergency (ER) | payer OTHER, SELFPAY ==
--- NOTE | ~2023-02-24 | XR_ITS ---
EXAMINATION: XR chest 2V DATE: 02/24/2023 19:25 INDICATION: Chest pain TECHNIQUE: PA and lateral views of the chest were obtained. COMPARISON: Chest radiograph dated 08/17/2022 FINDINGS: The lungs remain clear with no focal airspace opacities, pulmonary edema, pleural effusion or pneumot horax. The cardiomediastinal silhouette is normal. Chronic mild anterior wedging at T7. IMPRESSION: 1. No acute cardiopulmonary disease. Reviewed, dictated and finalized at location A.
--- NOTE | 2023-02-24 19:02 | ECG_ITS ---
Measurements Intervals [place] Rate: 97 P: 63 GA: 129 QRS: 35 QRSD: 87 T: 10 QT: 331 QTc: 421 Interpretive Statements SINUS RHYTHM COMPARED TO ECG 08/17/2022 10:11:53 NO SIGNIFICANT CHANGES Electronically Signed On 02-25-2023 13:36:12 CDT by Marisela Beasley M.D.
[2023-02-24 19:20] LABS: Basophils Percent Auto 0.4 % (0.2-1.2); Eosinophils Absolute Auto 0.1 K/mm3 (0-0.3); Eosinophils Percent Auto 1.5 % (0-4.4); Hematocrit 38.4 % (37.0-47.0); Hemoglobin 12.5 g/dL (12.0-15.0); Immature Granulocyte Absolute 0.02 K/mm3 (0.00-0.031); Immature Granulocyte Percent A 0.3 % (0-0.5); Lymphocytes Absolute Auto 1.95 K/mm3 (0.9-3.2); Lymphocytes Percent Auto 27.3 % (18.3-44.2); Mean Corpuscular HGB Conc 32.6 g/dl (32-36); Mean Corpuscular Hemoglobin 28.4 pg (26-34); Mean Corpuscular Volume 87.3 fl (80-100); Mean Platelet Volume 10.9 fl (7.4-10.4); Monocytes Absolute Auto 0.5 K/mm3 (0.1-0.6); Monocytes Percent Auto 7.3 % (2.6-8.5); Neutrophils Absolute Auto 4.5 K/mm3 (1.3-6.7); Neutrophils Percent Auto 63.2 % (45.5-73.1); Platelet Count Result 209 k/mm3 (150-375); Red Cell Distribution Width 13.4 % (11.5-14.5); White Blood Count 7.1 K/mm3 (4.5-10.0)
[2023-02-24 19:30] LABS: Prothrombin Time 14.1 Seconds (11.1-14.7)
[2023-02-24 19:31] LABS: Partial Thromboplastin Time 34.2 SECONDS (22.3-36.8)
[2023-02-24 19:32] LABS: Alanine Aminotransferase 20 U/L (6-35); Albumin Level 4.6 g/dL (3.5-5.1); Alkaline Phosphatase 41 U/L (38-126); Anion Gap 7 mmol/L (8-16); Aspartate Amino Transferase 24 U/L (14-36); Bilirubin,Total 1.3 mg/dL (0.2-1.3); Blood Urea Nitrogen 15 mg/dL (7-17); Calcium 9.4 mg/dL (8.4-10.2); Carbon Dioxide 29 mmol/L (22-30); Chloride 104 mmol/L (98-107); Estimated CRCL calculation 69 ml/min; Estimated Glomerular Filt Rate > 60; Glucose 76 mg/dL (65-110); Lipase 65 U/L (23-300); Potassium 3.9 mmol/L (3.4-5.0); Sodium 140 mmol/L (137-145)
[2023-02-24 19:35] VITALS: BP 117/62; PULSE 88; RESP 18; TEMP 36.8; O2SAT 100
[2023-02-24 19:43] LABS: Troponin I < 0.012 ng/mL (0.000-0.034)
--- NOTE | 2023-02-24 20:33 | ED.CHESTPAIN ---
HPI - Chest Pain General Chief Complaint: Chest Pain Stated Complaint: chest pain Time Seen by Provider: 02/24/23 19:40 History of Present Illness HPI narrative: Patient is a 22-year-old female presenting with chest pain. Patient states that she has had epigastric and substernal chest pain for the last month. States it is worse with taking a big breath. States that it is also worsened sometimes when she eats. States that she has to eat slowly and with small bites otherwise the pain is worsened. States that she feels somewhat short of breath because it hurts to take a big breath. She scheduled an appointment with her PCP but they told her if anything got worse to come in for evaluation. States that she felt lightheaded earlier today and felt like she was about to faint. States that she feels somewhat nauseated but has not been vomiting. No fevers or chills, headache, numbness or weakness, cough, sore throat, diarrhea, leg swelling, dysuria. Related Data Home Medications Medication Instructions Recorded Confirmed escitalopram oxalate 20 mg tablet 20 mg DAILY 11/09/22 11/09/22 spironolactone 100 mg tablet mg 12/14/22 trazodone 100 mg tablet mg 12/14/22 Allergies Allergy/AdvReac Type Severity Reaction Status Date / Time Penicillins Allergy Unknown Verified 12/14/22 15:15 amoxicillin AdvReac Rash Verified 12/14/22 15:15 Review of Systems Review of Systems: All systems reviewed & are unremarkable except as noted in HPI and below PMFSH Past Medical History Medical History IBS (irritable bowel syndrome) Surgical History Surgical History No pertinent past surgical history Social History Social History Smoking status: Never smoker Gender identity (if verbalized by the patient): Female Sexual Orientation (if Verbalized by the Patient): Straight or Heterosexual Exam Narrative: GENERAL: Well-appearing, well-nourished, and in no acute distress. Pleasant and cooperative HEAD: Normocephalic, atraumatic. EYES: PERRLA and EOMI. ENT: Nares clear, no rhinorrhea or epistaxis. Mucous membranes moist. NECK: Supple. CHEST: Clear to auscultation. No respiratory distress. + Right-sided chest wall tenderness along costochondral border HEART: Regular rate and rhythm. No murmur heard. Normal peripheral pulses. ABDOMEN: Soft, mild epigastric tenderness, no guarding or rebound EXTREMITIES: Normal range of motion. No edema. No calf swelling or erythema SKIN: Warm, dry, no rash. NEURO: No focal deficits. Alert and oriented x3. PSYCH: Normal mood and affect. Course Vital Signs Vital signs: Vital Signs Temperature 98.3 F 02/24/23 19:35 Pulse Rate 88 02/24/23 19:35 Respiratory Rate 18 02/24/23 19:35 Blood Pressure 117/62 02/24/23 19:35 Pulse Oximetry 100 02/24/23 19:35 Temperature 98.3 F 02/24/23 19:35 Pulse Rate 94 02/24/23 21:47 Respiratory Rate 16 02/24/23 21:47 Blood Pressure 114/80 02/24/23 21:47 Pulse Oximetry 98 02/24/23 21:47 Oxygen Delivery Room Air 02/24/23 20:14 MDM - Chest Pain MDM Narrative Medical decision making narrative: Patient is a 22-year-old female presenting with 1 month of chest pain with intermittent shortness of breath and lightheadedness. Vitals within normal limits. Patient is well-appearing and in no acute distress. Exam is remarkable for the above. EKG per my interpretation shows normal sinus rhythm, normal axis and intervals, no ST elevations or depressions. Chest x-ray shows no focal consolidations, effusions, pneumothorax. Blood work is unremarkable. Troponin is undetectable. Lipase is normal. D-dimer is undetectable. On reevaluation, the patient is resting comfortably. Discussed the reassuring work-up. Suspect possible costochondritis given her tenderness sekou
[2023-02-24 20:56] LABS: D Dimer < 0.27 ug/mL (<0.48)
[2023-02-24] MEDS: BELLADONNA ALK/PHENOB ELIX 10 ML, MAG HYDROX/ALUMINUM HYD/SIMETH 30 ML, LIDOCAINE HCL 2... PO (21:18)
[2023-02-24] MEDS: KETOROLAC 15 MG/ML VIAL (*BKC) IV PUSH (21:22)
[2023-02-24 21:47] VITALS: BP 114/80; PULSE 94; RESP 16; O2SAT 98
== END 2023-02-24 21:49 | disposition home or self-care (01) ==
PROVIDERS: Emergency Provider Emergency Medicine; PCP Family Medicine
DX: R07.89 Other chest pain (principal); K58.9 Irritable bowel syndrome, unspecified
CPT/HCPCS: 36415; 71046; 80053; 83690; 84484; 85025; 85380; 85610; 85730; 93005; 96374; 99284; A9270; J1885

== ENCOUNTER 2024-08-26 08:06 | Emergency (ER) | payer OTHER, SELFPAY ==
[2024-08-26 08:18] VITALS: BP 129/72; PULSE 82; RESP 16; TEMP 36.2; O2SAT 99
--- NOTE | 2024-08-26 08:19 | ED_ITS ---
HPI - URI/Sore Throat General Chief Complaint: Upper Respiratory Infection Stated Complaint: sore throat Time Seen by Provider: 08/26/24 08:19 Source: patient Mode of arrival: ambulatory Limitations: no limitations History of Present Illness HPI Narrative: 84-year-old female presents with complaint of sore throat for 3 days. Cough and congestion starting yesterday. Patient seen [facility] yesterday and swab for strep throat. Test was negative. Reports that she had a virtual visit. Is not confident in her exam Or diagnosis. stating sore throat worse today. Was given 3 days of prednisone. All systems reviewed and negative except as noted above. Related Data Home Medications Medication Instructions Recorded Confirmed prednisone 20 mg tablet See Rx Instructions .Route .COMPLEX 08/26/24 08/26/24 Allergies Allergy/AdvReac Type Severity Reaction Status Date / Time amoxicillin Allergy Intermediate Rash Verified 08/26/24 08:10 Penicillins Allergy Intermediate Rash Verified 08/26/24 08:10 Review of Systems Review of Systems: CONSTITUTIONAL: Denies fever, chills, or sweats. EYES: Denies visual changes, redness, or discharge. ENT: Reports rhinorrhea, congestion, sore throat. Denies otalgia. CARDIOVASCULAR: Denies chest pain, palpitations, or edema. RESPIRATORY: reports cough. Denies dyspnea. GASTROINTESTINAL: Denies abdominal pain, nausea, vomiting, or diarrhea. GENITOURINARY: Denies dysuria or hematuria. SKIN: Denies rash or itching. MUSCULOSKELETAL: Denies back pain, joint pain, or myalgia. NEUROLOGIC: Denies headache, numbness, or weakness. PSYCHIATRIC: Denies anxiety or depression. All other systems reviewed are negative, except as documented in HPI. [facility] Past Medical History Medical History IBS (irritable bowel syndrome) Surgical History Surgical History No pertinent past surgical history Social History Social History Smoking status: Never smoker Gender identity (if verbalized by the patient): Female Sexual Orientation (if Verbalized by the Patient): Straight or Heterosexual Comments At time of signature, agree with nursing past medical, surgical, social and family history. There is no relevant family history pertinent to the presenting complaint. Exam Narrative: GENERAL: This is a well-nourished, well-developed patient, in no apparent distress. HEAD: normocephalic, atraumatic. EYES: PERRL. Sclera clear/white. Vision is grossly intact. EARS: External ears normal, auditory canals clear and without drainage, TMs normal without perforation. Hearing grossly intact. NOSE: External nose normal with Clear nasal drainage THROAT: Mucous membranes moist, mild erythema without swelling or exudates. NECK: Neck supple, non-tender without lymphadenopathy, masses or thyromegaly. CARDIOVASCULAR: Regular rate and rhythm without murmurs, gallops, or rubs. RESPIRATORY: Clear to auscultation. Breath sounds equal bilaterally. No wheezes, rales, or rhonchi. SKIN: warm, Dry, intact with no suspicious lesions or rash, good texture and turgor. NEURO: awake, alert, and oriented to person, place and time. There were no obvious focal neurologic abnormalities. EXTREMITIES: No joint tenderness, effusion, or edema noted. Course Course Level of Care: Express Care Visit Vital Signs Vital signs: reviewed MDM - URI/Sore Throat MDM Narrative Medical decision making narrative: negative strep, COVID, influenza. Strep culture ordered. Patient well- appearing. Recommend she continue [id number] medications to treat symptoms. Patient is aware of diagnosis, understands and agrees to treatment plan. Anticipatory guidance given. Patient agrees to follow-up as directed and is aware of reasons to seek care at the emergency department. Portions of this record may have been created with voice recognition software Discharge Plan Discharge Clinical Impression: Viral upper respiratory tract infection with cough Patient Disposition: Home, Self-Care Condition: Stable Instructions: Upper Respiratory Infection (ED) Additional Instructions: your strep, COVID and influenza test were negative today. A strep culture was ordered and results will take 24-48 hours. If your strep culture is positive we will call you at that time and prescribed an antibiotic. Taking [id number] medication to treat her symptoms such as DayQuil NyQuil cold and flu. Take ibuprofen every 6-8 hours as needed for pain and fever. Drink at least 64 oz of water a day. Drink hot tea with honey to soothe throat and treat cough. Place cool mist humidifier in bedroom where you sleep. Follow-up with your doctor if symptoms are not improving. Prescriptions: No Action prednisone 20 mg tablet See Rx Instructions .ROUTE .COMPLEX Rx Instructions: Rx Follow-up/Referrals: Marisol,MD Stevo [Primary Care Provider] - Time of Disposition: 08:47
[2024-08-26 08:48] LABS: EDCOVIDSCREEN Negative (Negative); EDINFLUASCREEN Negative (Negative); EDINFLUBSCREEN Negative (Negative); EDSTREPNEGPOS1 Negative (Negative)
== END 2024-08-26 08:50 | disposition home or self-care (01) ==
PROVIDERS: Emergency Provider Nurse Practitioner Family; PCP Family Medicine
DX: J06.9 Acute upper respiratory infection, unspecified (principal); R05.9 Cough, unspecified; Z20.822 Contact with and (suspected) exposure to COVID-19
CPT/HCPCS: 87081; 87426; 87804; 87880; 99213; G0463

== ENCOUNTER 2024-11-18 19:25 | Emergency (ER) | payer OTHER, SELFPAY ==
--- NOTE | 2024-11-18 19:32 | ED_ITS ---
HPI - Wound/Laceration General Chief Complaint: Wound/Laceration Stated Complaint: stepped on nail left foot Time Seen by Provider: 11/18/24 19:33 Source: patient Mode of arrival: ambulatory Limitations: no limitations History of Present Illness HPI narrative: 24 yo F presents with puncture to bottom of L foot. Renovation baseline. Stepped on baseboard with nail in it. bleeding controlled. Cleaned wound at home. Requesting tetanus vaccine. All systems reviewed and negative except as noted above. Related Data Allergies Allergy/AdvReac Type Severity Reaction Status Date / Time amoxicillin Allergy Intermediate Rash Verified 11/18/24 19:33 Penicillins Allergy Intermediate Rash Verified 11/18/24 19:33 Review of Systems Review of Systems: CONSTITUTIONAL: Denies fever, chills, or sweats. EYES: Denies visual changes, redness, or discharge. ENT: Denies rhinorrhea, congestion, sore throat, or otalgia. CARDIOVASCULAR: Denies chest pain, palpitations, or edema. RESPIRATORY: Denies cough or dyspnea. GASTROINTESTINAL: Denies abdominal pain, nausea, vomiting, or diarrhea. GENITOURINARY: Denies dysuria or hematuria. SKIN: Denies rash. Reports puncture wound to bottom of left foot. MUSCULOSKELETAL: Denies back pain, joint pain, or myalgia. NEUROLOGIC: Denies headache, numbness, or weakness. PSYCHIATRIC: Denies anxiety or depression. All other systems reviewed are negative, except as documented in HPI. PMFSH Past Medical History Medical History IBS (irritable bowel syndrome) Surgical History Surgical History No pertinent past surgical history Social History Social History Smoking status: Never smoker Gender identity (if verbalized by the patient): Female Sexual Orientation (if Verbalized by the Patient): Straight or Heterosexual Comments At time of signature, agree with nursing past medical, surgical, social and family history. There is no relevant family history pertinent to the presenting complaint. Exam Narrative: GENERAL: This is a well-nourished, well-developed patient, in no apparent distress. HEAD: normocephalic, atraumatic. EYES: PERRL. Sclera clear/white. Vision is grossly intact. EARS: External ears normal NOSE: External nose normal NECK: Neck supple, non-tender without lymphadenopathy, masses or thyromegaly. CARDIOVASCULAR: Regular rate and rhythm without murmurs, gallops, or rubs. RESPIRATORY: Clear to auscultation. Breath sounds equal bilaterally. No wheezes, rales, or rhonchi. SKIN: warm, Dry, intact with no suspicious lesions or rash, good texture and turgor. puncture wound to plantar aspect L foot. bleeding controlled. no signs of infection. NEURO: awake, alert, and oriented to person, place and time. There were no obvious focal neurologic abnormalities. EXTREMITIES: No joint tenderness, effusion, or edema noted. Course Course Level of Care: Express Care Visit Vital Signs Vital signs: Vital Signs Temperature 35.8 C L 11/18/24 19:34 Pulse Rate 98 11/18/24 19:34 Respiratory Rate 16 11/18/24 19:34 Blood Pressure 132/83 11/18/24 19:34 Pulse Oximetry 99 11/18/24 19:34 Oxygen Delivery Room Air 11/18/24 19:34 Temperature 35.8 C L 11/18/24 19:34 Pulse Rate 98 11/18/24 19:34 Respiratory Rate 16 11/18/24 19:34 Blood Pressure 132/83 11/18/24 19:34 Pulse Oximetry 99 11/18/24 19:34 Oxygen Delivery Room Air 11/18/24 19:34 reviewed MDM - Wound/Laceration MDM Narrative Medical decision making narrative: no signs of infection. Will prescribed abx ointment. Ambulatory with steady gait. Please be advised this is a medical document. It is intended for [id number] communication. It is written in medical language and may contain unfamiliar abbreviations or verbiage. Medical documents are intended to carry relevant information, facts as evident, and the clinical opinion of the practitioner at the time of the encounter. This report may have been done utilizing a voice recognition system. Attempts have been made to correct errors. However, there may be uncorrected grammatical, spelling, and recognition errors present. The file time of this note does not necessarily represent the time of service. Discharge Plan Discharge Clinical Impression: Puncture wound of foot, left Qualifiers: Encounter type: initial encounter Qualified Code(s): S91.332A - Puncture wound without foreign body, left foot, initial encounter Patient Disposition: Home, Self-Care Condition: Stable Instructions: Antibiotic Form, Puncture Wound in the Foot (ED) Additional Instructions: Apply antibiotic ointment as prescribed. Keep clean. Wash with soap and water. If you have redness, warmth, swelling, drainage see your doctor. Patient Language: Serbian Prescriptions: New mupirocin [Centany] 2 % ointment 1 applic topical BID 7 Days Qty: 22 0RF Follow-up/Referrals: Marisol,MD Stevo [Primary Care Provider] - Time of Disposition: 19:39
[2024-11-18 19:34] VITALS: BP 132/83; PULSE 98; RESP 16; TEMP 35.8; O2SAT 99
[2024-11-18] MEDS: TETANUS,DIPHTHERIA,AC PERTUSSIS ADULT (0.5 ML) BOOSTRIX IM (19:38)
== END 2024-11-18 19:51 | disposition home or self-care (01) ==
PROVIDERS: Emergency Provider Nurse Practitioner Family; PCP Family Medicine
DX: S91.332A Puncture wound without foreign body, left foot, initial encounter (principal); W45.0XXA Nail entering through skin, initial encounter; Z23 Encounter for immunization
CPT/HCPCS: 90471; 90715; 99213; G0463

== ENCOUNTER 2025-05-02 16:19 | Emergency (ER) | payer OTHER, SELFPAY ==
--- NOTE | ~2025-05-02 | US_ITS ---
EXAM: PELVIC ULTRASOUND HISTORY: CT findings of questionable ovary appearance? COMPARISON: 09/07/2022. Reference is also made to the CT examination of the abdomen and pelvis performed the same day. FINDINGS: UTERUS: 8.5 x 3.2 x 3.8 cm. The uterus is anteverted and anteflexed. The endometrial complex measures 11.2 mm. RIGHT OVARY: The right ovary is increased in size measuring 3.4 x 2.8 x 2.5 cm. Dopplerable flow is identified. Within the right ovary is an irregular anechoic avascular focus measuring 15 x 18 x 17 mm, consistent with the involuting cyst seen on CT examination. Adjacent to the right ovary, anterior and lateral in location is an indeterminate focus of decreased echogenicity. This focus does not correspond to the patient's anatomy on CT examination. Repeat ultra sound interrogation could not reproduce abnormality, possibly representing a portion of the posterior lateral wall of the bladder, which is now distended (whereas on CT it was decompressed). LEFT OVARY: The left ovary is unremarkable in echogenicity and size measuring 3.1 x 1.9 x 2.3 cm Dopplerable flow is identified. IMPRESSION: Redemonstration of the involuting cyst seen on CT examination for which no further follow-up is neede d. Remainder of examination, is as detailed above. Reviewed, dictated and finalized at location A. IMPRESSION: Redemonstration of the involuting cyst seen on CT examination for which no furt her follow-up is needed. Remainder of examination, is as detailed above.
--- NOTE | ~2025-05-02 | CT_ITS ---
CLINICAL INDICATION: Right upper quadrant pain COMPARISON: 09/07/2022. TECHNIQUE: Multiple contiguous axial images of the abdomen and pelvis were performed following the ad ministration of with 100 mL Omnipaque-350 intravenous contrast The dose-length product (DLP) was 195.85 mGy-cm. Automated exposure control and iterative reconstruction technique were employed. FINDINGS/OBSERVATIONS: Visualized lower thorax: The bilateral lung bases are clear. The heart is of normal size, without pericardial effusion. Liver: The liver demonstrates homogeneous enhancement and is not enlarged. Gallbladder and biliary system: The gallbladder is only minimally distended, suggesting recent oral intake. No stones are identified within the gallbladder. No significant distention, mural thickening or surrounding inflammatory change. Pancreas: The pancreas enhances homogeneously without ductal dilatation. Spleen: The spleen enhances homogeneously and is not enlarged. Kidneys: The bilateral kidneys enhance symmetrically without hydronephrosis or renal calculi. Adrenal glands: Unremarkable. Gastrointestinal tract: Trace fecal stasis within the colon. Appendix: Surgically absent. Vasculature: Unremarkable. Lymph nodes: No pathologically enlarged or morphologically suspicious lymph nodes within the retroperitoneum or at the root of the mesentery. Pelvic structures: The bladder is only minimally distended, limiting its evaluation. The uterus is anteverted and anteflexed. 17 mm involuting cyst within the right ovary. Dense free fluid within the right hemipelvis, possibly physiologic. Body wall and musculoskeletal: No significant degenerative disease within the lower thoracic or lumbosacral spine. IMPRESSION: 17 mm involuting cyst within the right ovary, for which ultrasound examination may be performed for c onfirmation. Dense free fluid within the right hemipelvis, possibly physiologic. The gallbladder is only minimally distended suggesting recent oral intake for which clinical correlat ion is needed. Reviewed, dictated and finalized at location A. IMPRESSION: 17 mm involuting cyst within the right ovary, for which ultrasound examination may be performed for confirmation. Dense free fluid within the right hemipelvis, possibly physiologic. The gallbladder is only minimally distended suggesting recent oral intake for w hich clinical correlation is needed.
--- NOTE | ~2025-05-02 | US_ITS ---
EXAM: ABDOMEN ULTRASOUND HISTORY: RUQ pain; equivocal Low and CT COMPARISON: Reference is made to a contrast-enhanced CT examination of the abdomen and pelvis perform ed 2 hours earlier, which demonstrated an involuting cyst within the right ovary and dense free fluid within the right hemipelvis, without additional pathology. FINDINGS: LIVER: The liver is unremarkable in echogenicity and size. The portal vein demonstrates a phasic waveform, but in the hepatopedal direction. GALLBLADDER: No stones are identified within the gallbladder, which is otherwise unremarkable. No gallbladder wall thickening or pericholecystic fluid. No sonographic Low sign was elicited by the environmental health technologist. BILE DUCTS: Common bile duct measures 2.8mm. PANCREAS: Limited evaluation of the pancreas secondary to overlying bowel gas IMPRESSION: Limited evaluation of the pancreas secondary to overlying bowel gas Phasic waveform within the portal vein. Otherwise, unremarkable sonographic evaluation of the right upper quadrant, as detailed above. Reviewed, dictated and finalized at location A.
--- OUTSIDE RECORDS SUMMARY | 2025-05-02 16:23 | XMS_ITS | Encounter Summary ---
Author Organization [facility] Address [address] [place] [id number] Care Team Providers Care Business Management Consultant Name Role Phone Stevo Damon MD Primary Care Provider [phone] Reason for Visit * Reason Onset Date Comments Abdominal Pain 05/02/2025 Encounter Details Date Type Department Care Team (Late st Contact Info) Description 05/02/2025 Nurse Triage [facility] Family Medicine at [address] [place] [address] Stevo Damon MD [address] [place] [id number] Social History Tobacco Use Types Packs/Day Years Used Date Smoking Tobacco: Never Smokeless Tobacco: Never Alcohol Use Standard Drinks/Week Comments Never 0 (1 standard drink = 0.6 oz pur e alcohol) AUDIT-C Answer Date Recorded Q1: How often do you have a drink containing alcohol? Never 12/17/2024 Q2: How many drinks containi ng alcohol do you have on a typical day when you are drinking? Patient does not drink Q3: How often do you have si x or more drinks on one occasion? Never 12/17/2024 PHQ-2 Answer Date Recorded PHQ-2 Total Score (If total score is 3 or more points, staff should administer the PHQ-9) 0 06/13/2024 PHQ-9 Answer Date Recorded PHQ-9 Total Score 0 06/13/2024 Personal Safety Answer Date Recorded Have you ever been in or are you currently in a harmful physical or emotional relationship or is someone making you feel afraid or unsafe? 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 Warm transfer to [facility]. * Telephone Encounter - Stevo Damon MD - 05/02/2025 2:44 PM CDT RUQ ultrasound and CBC-CMP can be ordered. * Telephone Encounter - Shakira Shields RN - 05/02/2025 11:31 AM CDT Reason for Conversation Abdominal Pain Background Rhiannon Landers reports new onset RUQ pain since 04/28/25 which has been intermittent/sharp but occurring with more frequency. Rates pain at worst 6/10, at best 1/10, right now 3/10. It radiates around her left side into her back &/or into the supraumbilical or substernal areas. Endorses mild pain in RUQ when voiding & minimal lightheadedness upon standing or bending over. Endorses mild intermittent chest pressure at times but not actual chest pain(s). Hx of IBS/appendectomy. Hx maternal line colon cancer. Still has gallbladder. Denies chest pain/SOB/vomiting/fever. Care advice and emotional support given. Advised patient to avoid eating or drinking anything except medications with sips of water until after being evaluated today, in case imaging is needed and patient verbalized understanding. Patient instructed to call back if symptoms worsen or with any questions and verbalized understanding. No appointments in the office today. Patient politely declined UCC or ED and prefers a VV instead. Scheduled VCC appointment for 1215 today with the understanding that VCC provider may still advise her tp go to UCC or ED. Patient verbalized understanding. Routing FYI to office. Disposition No disposition on file. Reason for Disposition No Reason for Disposition on file. Protocols Used No protocols used. * Telephone Encounter - Shakira Shields RN - 05/02/2025 11:28 AM CDT Regarding: RUQ moderate pain ----- Message from Faustino Henderson sent at 05/02/2025 11:25 AM CDT ----- Symptom Based Call Chief Complaint(s): mild-moderate upper right abdominal pain Duration: Tuesday What type of symptom(s) is the patient experiencing? Non-Emergent. Is this a new or reoccurring symptom(s)? new What have you tried to help your symptom(s)? Ibuprofen Why was appointment not scheduled? Appointment availability did not meet the patient's need. Additional Comments: patient is reporting Constant sharp upper right and middle back pain, worsening when she eats or drinks caffine stated she is unable to see her GI doctor until 05/24 Does message need to be routed? Yes-Action Needed documented in this encounter Plan of Treatment Not on file documented as of this encounter Visit Diagnoses Not on filedocumented in this encounter Care Teams Business Management Consultant Relationship Specialty Start Date End Date Stevo Damon MD PCP - General Family Medicine 02/01/19 documented as of this encounter
--- OUTSIDE RECORDS SUMMARY | 2025-05-02 16:23 | XMS_ITS | Encounter Summary ---
Author Organization [facility] Healthcare Address [address] [place] [address] Care Team Providers Care S3B Multi Sensor Operator Name Role Phone Stevo Damon MD Primary Care Provider [phone] Reason for Visit * Reason Comments Abdominal Pain RUQ Encounter Details Date Type Department Care Team (Late st Contact Info) Description 05/02/2025 12:15 PM CDT Telemedicine [facility] Medical Group Virtual Care [address] [place] [phone] Rochelle Segura, MANAGER APPLICATION [address] [facility] [address] [place] [address] RUQ abdominal pain (Primary Dx) Social History Tobacco Use Types Packs/Day Years [...] on file Legal Sex 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 Below are the instructions we discussed during your visit. If any medications were ordered, they were sent to your pharmacy as discussed. Please go to Urgent Care or ER for in person evaluation. Likely CT of abdomen and Gallbladder US. If you have no improvement or worsening of your symptoms, please follow up with your Primary Care Provider or a Convenient Care/Urgent Care where someone can see you in person rather than virtually. I strive to provide you with EXCELLENT service. You may receive a survey after your visit today. If you cannot rate your experience as EXCELLENT, please let us know how we can improve and better meet your needs. Thank you for choosing [facility]! Hope you feel better soon! Rochelle Segura NP documented in this encounter Progress Notes * Rochelle Segura NP - 05/02/2025 12:15 PM CDT Images from the original note were not included. This was a telemedicine visit with Rhiannon Landers alone which took place via real- time video connection with [facility]. During the visit, I was located at home and the patient was located at home in the state [facility]. The patient visit started at 12:12 and ended at 12:20. My total encounter time on 05/02/2025 was 10 minutes which was spent in the activities documented in the note. This includes time spent prior to the visit and after the visit in direct care of the patient. This time does not include time spent in any separately reportable services. I have explained the option of participating in a telemedicine visit to the patient. After being given an opportunity to ask questions about and discuss this type of visit, the patient verbally consented to proceeding with the telemedicine visit. The patient understands that this service replaces an office visit and they may be billed and/or responsible for any applicable copayments. DATE OF VISIT: 05/02/2025 DATE: 2000 Subjective/Objective Patient ID: Rhiannon Landers is a 24 y.o. female. CHIEF COMPLAINT: Chief Complaint Patient presents with Abdominal Pain RUQ HPI: Presents for virtual visit with complaints of RUQ abdomen pain for 4 days. Reports started intermittently, but has become constant. Reports is RUQ and radiates around into the back. Worsens when eating or drinking Abdominal Pain This is a new problem. Episode onset: 4 days. The problem occurs constantly. The problem has been gradually worsening. The pain is located in the RUQ. The pain is at a severity of 3/10. The quality of the pain is sharp. The abdominal pain radiates to the back. Pertinent negatives include no belching, constipation (IBS goes back and forth), diarrhea (IBS goes back and forth), dysuria, fever, flatus , frequency, headaches, myalgias, nausea or vomiting. The pain is aggravated by eating. Treatments tried: Ibuprofen and Tylenol. Her past medical history is significant for abdominal surgery (appendectomy) and GERD. There is no history of gallstones, pancreatitis, PUD or ulcerative colitis. ALLERGIES: Allergies Allergen Reactions Amoxicillin Hives Penicillins Hives and Rash As a child MEDICATIONS: Current Outpatient Medications: acetaminophen (TYLENOL) 500 mg tablet, Take 2 tablets (1,000 mg total) by mouth every 6 (six) hoursas needed for pain, Disp: 240 tablet, Rfl: 0 escitalopram (LEXAPRO) 20 mg tablet, Take 1 tablet (20 mg total) by mouth daily, Disp: 90 tablet, Rfl: 1 methocarbamoL (ROBAXIN) 750 mg tablet, Take 1 tablet (750 mg total) by mouth 3 (three) times a day Start taking at night, and then if tolerated, increase to 3x/day., Disp: 30 tablet, Rfl: [address] (PROTONIX) 40 mg EC tablet, Take 1 tablet (40 mg total) by mouth 2 (two) times a day, Disp: 180 tablet, Rfl: 1 semaglutide (Wegovy) 0.25 mg/0.5 mL auto-injector, Inject 0.25 mg under the skin every 7 days for 28 days, Disp: 2 mL, Rfl: 0 traZODone (DESYREL) 100 mg tablet, Take 1 tablet (100 mg total) by mouth nightly, Disp: 90 tablet, Rfl: 1 ROS: Review of Systems Constitutional: Negative for fever. Respiratory: Negative for cough and shortness of breath. Cardiovascular: Negative for chest pain. Gastrointestinal: Positive for abdominal pain. Negative for constipation (IBS goes back and forth),diarrhea (IBS goes back and forth), flatus, nausea and vomiting. Genitourinary: Negative for dysuria and frequency. Musculoskeletal: Negative for myalgias. Skin: Negative for rash. Neurological: Negative for headaches. Psychiatric/Behavioral: The patient is not nervous/anxious. There were no vitals taken for this visit. PHYSICAL EXAM: Physical Exam Vitals reviewed: exam limited due to video visit. Constitutional: General: She is not in acute distress. Appearance: Normal appearance. Pulmonary: Comments: Lungs appear even and unlabored. No visible use of accessory muscles. Able to complete full sentences without difficulty. Abdominal: Comments: Unable to examine as this is a video visit, but did not show any signs of voluntary or involuntary guarding as the patient sat during the video visit and moved around, leaning forward and backward. Neurological: Mental Status: She is alert and oriented to person, place, and time. Psychiatric: Mood and Affect: Mood normal. Behavior: Behavior normal. I have reviewed most recent available progress notes in the chart. ASSESSMENT/PLAN/RECOMMENDATIONS: Assessment/Plan Diagnoses and all orders for this visit: RUQ abdominal pain (Primary) Patient with RUQ abdominal pain that radiates to the back, worsens with eating and drinking. Consider: gallbladder, pancreatitis. Recommend patient be seen in person to have probable CT of abdomen and Gallbladder US. Advise Urgent Care or ER. Patient agreeable to plan. Future Appointments Date Time Provider Department Center 05/24/2025 9:45 AM Trevor Sawyer MD [facility] Specialty 06/17/2025 2:15 PM Stevo Damon MD [facility] 210 PC Disposition- Discussed medications dosages, usage & potential side effects. Risks and interactions reviewed with patient. Indications for testing reviewed. Patient has been instructed to follow up w PCP or go to ER for any signs or symptoms that are of concern or worsening. Patient verbalizes understanding. The patient was given the opportunity to ask all questions and to have all questions answered. Patient is in agreement with the plan of care Rochelle Segura NP documented in this encounter Plan of Treatment Not on file documented as of this encounter Visit Diagnoses Diagnosis RUQ abdominal pain- Primary Abdominal pain, right upper quadrant documented in this encounter Discontinued Medications Medication Sig Discontinue Reason Start Date End Da te azithromycin (ZITHROMAX) 250 mg tablet Take 2 tabs (500 mg) by mouth today, than 1 daily for 4 days. Therapy completed 02/13/2025 05/02/2025 documented as of this encounter Care Teams S3B Multi Sensor Operator Relationship Specialty Start Date End Date Stevo Damon MD PCP - General Family Medicine 02/01/19 documented as of this encounter
--- OUTSIDE RECORDS SUMMARY | 2025-05-02 16:23 | XMS_ITS | Clinical Summary ---
Author Organization [facility]spital Address [address] [place] [address] Care Team Providers Care White Lead Filterer Name Role Phone Stevo Damon MD Primary Care Provider [phone] Allergies Active Allergy Reactions Criticality Noted Date Comments Amoxicillin Hives Medium 02/25/2023 Penicillins Hives,Rash Medium 02/05/2015 As a child Medications methocarbamoL (ROBAXIN) 750 mg tabletIndication s:Dysmenorrhea Take 1 tablet (750 mg total) by mouth 3 (three) times a day Start taking at night, and then if tolerated, increase to 3x/day. 30 tablet 3 3 Active acetaminophen (TYLENOL) 500 mg tablet Take 2 tablets (1,000 mg total) by mouth every 6 (six) hours as needed for pain 240 tablet 4 Active traZODone (DESYREL) 100 mg tabletIndication s:Psychophysiolo gical insomnia Take 1 tablet (100 mg total) by mouth nightly 90 tablet 1 5 06/15/20 25 Active escitalopram (LEXAPRO) 20 mg tabletIndication s:RHODA (generalized anxiety disorder) Take 1 tablet (20 mg total) by mouth daily 90 tablet 1 5 06/15/[address] (PROTONIX) 40 mg EC tabletIndication s:Gastroesophage al reflux disease without esophagitis Take 1 tablet (40 mg total) by mouth 2 (two) times a day 180 tablet 1 5 Active semaglutide (Wegovy) 0.25 mg/0.5 mL auto-injectorInd ications:Weight Loss Management for Obese Patient (BMI >= 30) Inject 0.25 mg under the skin every 7 days for 28 days 2 mL 5 Active azithromycin (ZITHROMAX) 250 mg tablet Take 2 tabs (500 mg) by mouth today, than 1 daily for 4 days. 6 tablet 5 05/02/20 25 Discontinu ed(Therapy completed) Active Problems Problem Noted Date Diagnosed Date Overweight with body mass in dex (BMI) of 26 to 26.9 in adult 12/17/2024 Overview (12/17/2024): Chronci. Uncontrolled. Goal: 125lb Start Wegovy. Gastroesophageal reflux disease without esophagi tis 12/17/2024 Overview (12/17/2024): Chronci. Uncontrolled. Start Protonix. Paronychia of great toe 12/17/2024 Dysmenorrhea 09/22/2023 Abnormal uterine bleeding (AUB) 09/22/2023 Family history of colon cancer in mother 023 Assessment & Plan (08/04/2023 10:43 AM FINANCIAL REPORTING ACCOUNTANT): Mother diagnosed with colon cancer in her 30s and in her early 40s. Patient states her paternal grandfather also had colon cancer. Diarrhea 08/04/2023 Assessment & Plan (08/04/2023 10:43 AM FINANCIAL REPORTING ACCOUNTANT): Chronic diarrhea for the past few years. -order labs and stool studies for further evaluation -schedule colonoscopy -The risks (risks of bleeding, infection, perforation requiring surgery, missed polyps/cancer, dental injury, aspiration pneumonia, anesthesia complications such as drug reaction and cardiopulmonary complications including rare chance of ), benefits, and alternatives of the planned procedure were explained to the patient who understands and consents to having procedure done. Pelvic pain 05/27/2023 Right ovarian cyst 05/27/2023 Atypical chest pain 02/25/2023 RHODA (generalized anxiety disorder) 10/27/2022 Hair loss 10/27/2022 Overview (10/27/2022): Crhonic. Uncontrolled. Unclear Dx. Derm Referral. Left leg pain 02/27/2020 Assessment & Plan (02/27/2020 4:02 PM CDT): Xray of left lower leg. Can take gabapentin 100 mg at bedtime for pain. Elevate and rest for swelling since does not tolerate the weight of ice or a heating pad due to pain. Advised follow-up with PCP if symptoms worsen, don't resolve, or new symptoms develop for consideration of further testing and/or referral to specialist. Left leg paresthesias 02/27/2020 Assessment & Plan (02/27/2020 4:01 PM CDT): See plan of care for left leg pain. Intractable abdominal migraine 10/02/2019 Herpes labialis 10/02/2019 Non-intractable vomiting 09/12/2019 Assessment & Plan (09/12/2019 3:43 PM FINANCIAL REPORTING ACCOUNTANT): Overall Condition: New Acute Problem Treatment: New Medication: Zofran Follow up PRN Lower abdominal pain 06/04/2019 Assessment & Plan (06/04/2019 1:10 PM CDT): Overall Condition: New Acute Problem Treatment: New Medication: Continue PPI. and Imaging: Pelvic Ultrasound and Loan Approver Referral. Follow up PRN Psychophysiological insomnia 03/05/2019 Dyspepsia 02/01/2019 Overview (08/04/2023): Chronic epigastric pain radiating to the chest as well as right lower quadrant abdominal pain. Patient went to the ER May of 2023 for right lower quadrant abdominal pain. Prior CT scan at an outside hospital showed a right ovarian cyst. Cyst had resolved, no surgery was done. Continues to have RLQ pain. Patient has tried PPIs 4-5 months without any benefit. Differential is broad and includes GERD versus peptic ulcer disease versus IBS versus IBD versus gallstones. -avoid NSAIDS -PPI daily -we will order CT scan given tenderness in the right lower quadrant to rule out appendicitis -we will start Carafate with meals -schedule EGD -The risks (risks of bleeding, infection, perforation requiring surgery, missed polyps/cancer, dental injury, aspiration pneumonia, anesthesia complications such as drug reaction and cardiopulmonary complications including rare chance of ), benefits, and alternatives of the planned procedure were explained to the patient who understands and consents to having procedure done. Anxiety 10/20/2017 Assessment & Plan (02/01/2019 2:19 PM CDT): Reduce Prozac 10mg daily for two weeks, then stop. Lexapro 10mg daily for two weeks, then increase to 20mg. Depression 02/04/2017 Primary dysmenorrhea 02/04/2017 Irritable bowel syndrome 02/04/2017 Assessment & Plan (10/09/2020 2:12 PM FINANCIAL REPORTING ACCOUNTANT): Overall Condition New Diagnosis. Treatment: New Medication: Bentyl and Omeprazole. Recommended dietary modification. Follow up in 6 months Resolved Problems Problem Noted Date Diagnosed Date Resolved Date Encounter for annual health examination 07/09/2022 05/27/2023 Rash and nonspecific skin eruption 02/27/2020 05/27/2023 Assessment & Plan (02/27/2020 4:03 PM CDT): Possibly hives, however, lesions do not itch. Advised to observe for resolution of rash, can use topical [id number] steroid cream and antihistamine such as Benadryl as directed as needed if itching occurs, currently asymptomatic and explained that the rash doesn't appear to be related to her chronic left leg pain. Gastroenteritis 05/21/2019 05/27/2023 Assessment & Plan (05/21/2019 1:12 PM CDT): Overall Condition New Acute Problem. Treatment: New Medication: BRAT Diet. Zofran and Ranitidine. Follow up PRN and 6 months Generalized abdominal pain 05/21/2019 0 05/27/2023 Assessment & Plan (05/21/2019 1:13 PM CDT): Overall Condition New Acute Problem. Treatment: Lab: CBC and CMP. Discussed signs and symptoms of acute abdoment. Follow up PRN and 6 months Encounters Date Type Department Care Team Description 05/02/2025 12:15 PM CDT Telemedicine [facility] [address] [place] [phone] Rochelle Segura, STORE COORDINATOR RUQ abdominal pain (Primary Dx) 05/02/2025 Nurse Triage [facility] Family Medicine at [address] [place] [address] Stevo Damon MD 02/20/2025 Telephone [facility] Family Medicine at [address] [place] [address] Stevo Damon MD Medication Request 02/20/2025 Telephone [facility] Obstetrical Gynecology [address] [place] [address] [place] [phone] Jr Bardales MD 02/20/2025 Patient Self-Triage [facility] [address] [place] [address] Mychart, Generic Provider 02/13/2025 Nurse Triage [facility] Medicine at [address] [place] [address] Stevo Damon MD from Last 3 Months Immunizations Immunization Administration Dates Next Due DTaP 2001,2001,2001 DTaP / HiB 12/17/2002 DTaP / IPV 04/29/2006,03/05/2002,2001 ,2001 DTaP, Unspecified 05/09/2006, 3,2001,2001, 2001 Hep B / HiB 2001 Hep B, Adolescent or Pediatric 2001,2000,2001 HiB 2001,2001 Hib (PRP-T) 12/17/2002,2001,2001 ,2001 IPV 03/05/2002,2001,2001 Influenza, Split 09/17/2003 Influenza, Unspecified 05/27/2023(Deferr ed: Patient decision),05/27/2022(Deferred: Patient decision) MMR 06/22/2002 MMRV 05/09/2006,06/22/2002 Pneumococcal Conjugate 7-Valent 06/22/2002,12/21,2001,2001 Pneumococcal Conjugate PCV 13 06/22/2002, 002,2001,2001 Varicella 12/17/2002 Surgical History Surgery Date Site/Laterality Comments COLONOSCOPY 09/26/2019 - 09/25/2020 APPENDECTOMY 0127 Medical History Medical History Date Comments Anxiety Depression Inflammatory bowel disease Ovarian cyst Motion sickness Family History Medical History Relation Name Comments No Known Problems Brother Anxiety disorder Father Anxiety - ( Added by TW Conv) Colonic polyp Father Family history of colonic polyps - (Added by TW Conv) Depression Father Family history of depression - (Added by TW Conv) Anemia Mother Rose Galvez Family history of anemia - (Added by TW Conv) Cancer Mother Rose Galvez Cancer - under age of 50 (Added by TW Conv) Depression Mother Rose Galvez Diabetes Mother Rose Galvez Family history of diabetes mellitus - (Added by TW Conv) Migraines Mother Rose Galvez Family history of migraine headaches - (Added by TW Conv) Migraines Other 1 Family history of migraine headaches - Relation: Grandparent (Added by TW Conv) Cancer Other 2 Cancer - under age of 50 Relation: Grandparent (Added by TW Conv) No Known Problems Sister Anesthesia problems Neg Hx Relation Name Status Comments Brother Alive Father Alive Mother Rose Glavez Other 1 Other 2 Sister Alive Social History Tobacco Use Types Packs/Day Years Used Date Smoking Tobacco: Never Smokeless Tobacco: Never Tobacco Cessation:Counseling Given: Not Answered Alcohol Use Standard Drinks/Week Comments Never 0 [...] on file Legal Sex Female 5:35 AM FINANCIAL REPORTING ACCOUNTANT Gender Identity Not on file Sexual Orientation Not on file Obstetrics History Para Term AB IAB SAB Ectopic Multiple Livin g Live Births 0 0 0 0 0 0 0 0 0 0 0 Last Filed Vital Signs Vital Sign Reading Time Taken Comments Blood Pressure 120/70 12/17/2024 1:35 PM CDT Pulse 79 12/17/2024 1:35 PM CDT Temperature 36.3 C (97.3 F) 12/17/2024 1:35 PM CDT Respiratory Rate 20 12/17/2024 1:35 PM CDT Oxygen Saturation 98% 12/17/2024 1:35 PM CDT Inhaled Oxygen Concentration - - Weight 65.9 kg (145 lb 3.2 oz) 12/17/2024 1:35 P M CDT Height 157.5 cm (5' 2) 12/17/2024 1:35 PM CDT Body Mass Index 26.56 12/17/2024 1:35 PM CDT Plan of Treatment Health Maintenance Due Date Last Done Comments Hepatitis C Screening 2001 HPV Vaccines (1 - 3-dose series) 2016 Meningococcal B Vaccine (1 o f 2 - Standard) 2017 Cervical Cancer Screening 04/15/2024 04/15/2023 Chlamydia and Gonorrhea (GC/ CT) Screening 06/10/2024 06/10/2023, 04/15/2023 Depression Screening 06/13/2025 06/13/2024, 06/13/2024, 07/09/2022, Additional history exists Regular Well Visit/Exam 18-64 06/13/2025, 07/09/2022, 11/05/2019 DTaP/Tdap/Td Vaccine (7 - Td or Tdap) 11/18/2034 11/18/2024, 05/09/2006, 04/29/2006, Additional history exists Hepatitis B Screening Completed 2001 , 2001, 2001, Additional history exists Pneumococcal vaccine <65 Completed 002, 06/22/2002, 2001, Additional history exists Influenza Vaccine Discontinued 09/17/2003 Varicella Vaccines Completed 05/09/2006, 0 12/17/2002, 06/22/2002 Procedures Procedure Name Priority Date/Time Associated Diagnosis Comments N. GONORRHOEAE/C. TRACHOMATIS AMPLIFICATION STAT 06/10/2023 6:42 PM CDT PAP WITH REFLEX TO HIGH RISK HPV Routine 04/15/2023 9:47 AM CDT Pelvic and perineal pain from Last 3 Months or Most Recently Relevant to Health Maintenance Results * N. gonorrhoeae/C. trachomatis Amplification Urine (06/10/2023 6:42 PM CDT) C. trachomatis Not Detected Not Detected AMAURY GONZALEZ Comment:Testing performed by : [facility], [address] [place] [address]., [id number] N. gonorrhoeae Not Detected Not Detected AMAURY GONZALEZ Comment: Interpretive Data Testing performed by the [facility]. This assay detects Chlamydia trachomatis and Neisseria gonorrhoeae by nucleic acid amplification testing (NAAT). This test is approved by the [place] Food and Drug Administration and the performance characteristics have been verified by the laboratory. The performance characteristics of this test have not been evaluated in individuals less than 14 years of age. Current Interpretive Data was last revised on 2019. Testing performed by: [facility], [address] [place] [address]., [address] Urine (None) 06/10/2023 6:42 PM CDT 06/10/2023 7:30 PM CDT us [facility] MICROBIOLOGY - GENERAL ORDE JOCELYNN Final Result AMAURY GONZALEZ [address] [facility] Department [place] [address] * Pap with reflex to High Risk HPV and Genotyping (Cytology Component) (04/15/2023 9:47 AM CDT) Thin prep (Pap test) 04/15/2023 9:47 AM CDT 04/18/2023 9:47 AM CDT Narrative PATHOLOGY [facility] - 04/21/2023 11:57 AM CDT [facility] Department of Pathology [address] [place], [place] [id number] Final Report Note to Patients: This report may contain a detailed description of human tissue sent by a health care provider to the laboratory for pathologic evaluation. The content of this report is essential for diagnosis and may provide important critical findings. This information may be unfamiliar to patients to review without a medical professional present. It is advised that the patient review this report in the presence of a health care provider who can answer questions and explain the details. Patient Name: RHIANNON LANDERS Address: [address] [place] [address] Gender: F : 2000 (Age: 22) Service: Location: N : [id number] Hospital #: [id number] Patient Type: [facility] SPECIMEN Taken: 04/15/2023 Received: 04/18/2023 Accessioned:: 04/19/2023 Reported: 04/21/2023 Physician(s): Saira Joe, [facility] Diagnosis: SOURCE OF SPECIMEN Imaged Thinprep Pap Test w/ Reflex HPV - Loan Approver Cytologic Material: STATEMENT OF ADEQUACY - Satisfactory for evaluation; endocervical/transformation zone component present GENERAL CATEGORIZATION: - Negative for intraepithelial lesion or malignancy ELLIE Diaz(ASCP)ELLIE Richardson(ASCP) Report Electronically Reviewed and Signed Out By ELLIE Richardson(ASCP) 04/21/2023 11:57:53Specimen(s) Received: A: Imaged Thinprep Pap Test w/ Reflex HPV - Loan Approver Cytologic Material Clinical History: Last Menstrual Period: 03/28/23 Menstrual History: Clinical History: pelvic pain The Pap test is a screening test used to aid in the detection of cervical cancer and its precursors. It should not be the sole means by which malignant and premalignant lesions are diagnosed. Both false negative and false positive results may occur. It also has poor sensitivity for the detection of endometrial lesions and should not be used to evaluate suspected endometrial abnormalities. For these reasons it is most important to obtain Pap tests at regular intervals. The performance characteristics of some immunohistochemical stains, fluorescence in-situ hybridization tests and immunophenotyping by flow cytometry cited in this report (if any) were determined by the Surgical Pathology Department at [facility] as part of an ongoing quality control director program and in compliance with federally mandated regulations drawn from the Clinical Laboratory Improvement Act of 1988 (CLIA '88). Some of these tests rely on the use of analyte specific reagents and are subject to specific labeling requirements by the [place] Food and Drug Administration. Such diagnostic tests may only be performed in a facility that is certified by the Department of Health and Human Services as a high complexity laboratory under CLIA '88. The FDA has determined that such clearance or approval is not necessary. This test is used for clinical purposes. It should not be regarded as investigational or for research. Nevertheless, federal rules concerning the medical use of analyte specific reagents require that the following disclaimer be attached to the report: This test was developed and its performance characteristics determined by the Surgical Pathology Department [facility]. It has not been cleared or approved by the U. S. Food and Drug Administration. Saira SAUND[facility] CYTOLOGY ORDERABLES Final Result Performing Organization Address City/State/[facility] Co de Phone Number [facility] from Last 3 Months or Most Recently Relevant to Health Maintenance Insurance [facility] CHOICE PLUS [facility] CHOICE PLUS [facility] CHOICE PLUS Care Teams White Lead Filterer Relationship Specialty Start Date End Date Stevo Damon MD PCP - General Family Medicine 02/01/19
--- OUTSIDE RECORDS SUMMARY | 2025-05-02 16:23 | XMS_ITS | Encounter Summary ---
Author Organization [facility] Address [address] [place] [address] Care Team Providers Care Botany Technician Name Role Phone Stevo Damon MD Primary Care Provider [phone] Encounter Details Date Type Department Care Team (Late st Contact Info) Description 10/18/2022 Tictail Message [employer] HE[facility] INFORMATION MANAGEMENT [address] [place] [address] [facility], [facility] Provider Patient Name Change Request Social History Tobacco Use Types Packs/Day Years Used Date Smoking Tobacco: Never Smokeless Tobacco: Never Alcohol Use Standard Drinks/Week Comments No 0 (1 standard drink = 0.6 oz pur e alcohol) AUDIT-C Answer Date Recorded Frequency of Alcohol Consumption Never 02/14/2019 Average Number of Drinks Not on file 019 Frequency of Binge Drinking Not on file 01/25 Comments No Sex and Gender Information Value Date Recorded Sex Assigned at Not on file Legal Sex Female 7:36 PM CDT Gender Identity Not on file Sexual Orientation Not on file COVID-19 Exposure Response Date Recorded In the last 10 days, have yo u been in contact with someone who was confirmed or suspected to have Coronavirus/COVID-19? No / Unsure 10/17/2022 12:26 PM SAFETY COORDINATOR documented as of this encounter Plan of Treatment Not on file documented as of this encounter Visit Diagnoses Not on filedocumented in this encounter Care Teams Botany Technician Relationship Specialty Start Date End Date Stevo Damon MD PCP - General FAMILY PRACTICE 02/14/19 documented as of this encounter
--- OUTSIDE RECORDS SUMMARY | 2025-05-02 16:23 | XMS_ITS | Encounter Summary ---
Author Organization [facility] Address [address] [place] [address] Care Team Providers Care Apprentice Plumber Name Role Phone Stevo Damon MD Primary Care Provider [phone] Encounter Details Date Type Department Care Team (Late st Contact Info) Description 01/12/2021 Prep for Procedure [facility] [place] [address] Tom Oropeza MD [address] [place] [address] Social History Tobacco Use Types Packs/Day Years [...] Exposure Response Date Recorded In the last month, have you been in contact with someone who was confirmed or suspected to have Coronavirus / COVID-19? No / Unsure 12/17/2020 3:53 PM CDT documented as of this encounter Plan of Treatment Not on file documented as of this encounter Results * PRE-SURGICAL/PRE-PROCEDURE CORONAVIRUS (COVID 19) (01/13/2021 10:05 AM CDT) CORONAVIRUS SARS COV 2 PCR (RESP) NOT DETECTED NOT DETECTED 01/14/2021 6:46 AM CDT [facility] Comment: A Not Detected (negative) test result for this test means that SARS-CoV-2 RNA was not present in the specimen above the limit of detection. A negative result does not rule out the possibility of COVID-19 and should not be used as the sole basis for treatment or patient management decisions. If COVID-19 is still suspected, based on exposure history together with other clinical findings, re-testing should be considered in consultation with public health authorities. Laboratory test results should always be considered in the context of clinical observations and epidemiological data in making a final diagnosis and patient management decisions. This patient specimen was tested using an FDA EUA pooling method. Negative results from pooled testing should not be treated as definitive. If the patient's clinical signs and symptoms are inconsistent with a negative result or results are necessary for patient management, then the patient should be considered for individual testing. In very rare cases, estimated at about 8 in 1,000 (0.8%) or less patient specimens with low viral loads may not be detected in sample pools due to the decreased sensitivity of pooled testing. Please review the Fact Sheets and FDA authorized labeling available for health care providers and patients using the following websites: https://www.[employer].com/home/Covid-19/HCP/rc- pwvu-vye1-mybk-sheet.html https://www.[employer].com/home/Covid-19/Patients/ lc-yhqa-ngp6-fact-sheet.html This test has been authorized by the FDA under an Emergency Use Authorization (EUA) for use by authorized laboratories. Due to the current public health emergency, [facility] is receiving a high volume of samples from a wide variety of swabs and media for COVID-19 testing. In order to serve patients during this public health crisis, samples from appropriate clinical sources are being tested. Negative test results derived from specimens received in non-commercially manufactured viral collection and transport media, or in media and sample collection kits not yet authorized by FDA for COVID-19 testing should be cautiously evaluated and the patient potentially subjected to extra precautions such as additional clinical monitoring, including collection of an additional specimen. Methodology: Nucleic Acid Amplification Test (NAAT) includes RT-PCR or TMA Additional information about COVID-19 can be found at the [facility] website: www.[employer].com/Covid19. Test performed at [facility] [address] [id number] Director: KAREN VERGARA DO,MPH FIRST TEST UNKNOWN 01/13/2021 10:19 AM CDT [facility] EMPLOYED IN HEALTHCARE NO 01/13/2021 10:19 AM CDT [facility] SYMPTOMATIC DEFINED BY CDC UNKNOWN 01/13/2021 10:19 AM CDT [facility] DATE OF SYMPTOM ONSET NO 01/13/2021 11:03 AM CDT [facility] HOSPITALIZATION STATUS NO 01/13/2021 10:19 AM CDT [facility] PATIENT IN ICU NO 01/13/2021 10:19 AM CDT [facility] RESIDENT OF CONGREGATE CARE NO 01/13/2021 10:19 AM CDT [facility] UNKNOWN 01/13/2021 10:19 AM CDT [facility] PATIENT'S RACE WHITE OR 01/13/2021 10:19 AM CDT [facility] ETHNICITY NONHISPANIC 01/13/2021 10:19 AM CDT [facility] SOURCE (QST) NASOPHARYNGEAL SWAB 01/13/2021 10:19 AM CDT [facility] NASOPHARYNGEAL SWAB / Unknown 01/13/2021 10:05 AM CDT us Tom Oropeza MD MICROBIOLOGY - GENE RAL ORDERABLES Final Result [facility] [address] [facility] [place] [address], [place] [phone] [facility] [address] [place] [address], documented in this encounter Visit Diagnoses Diagnosis Abdominal pain- Primary Abdominal pain, unspecified site documented in this encounter Additional Health Concerns Infection Onset Date Last Indicated Resolved Time COVID-19 Rule Out 01/13/2021 01/13/2021 01/14/2021 6:46 AM CDT documented as of this encounter Care Teams Apprentice Plumber Relationship Specialty Start Date End Date Stevo Damon MD PCP - General FAMILY PRACTICE 02/14/19 documented as of this encounter
--- OUTSIDE RECORDS SUMMARY | 2025-05-02 16:23 | XMS_ITS | Clinical Summary ---
Author Organization [facility] Address [address] [place] [address] Care Team Providers Care Life Assurance Representative Name Role Phone Stevo Damon MD Primary Care Provider Allergies Active Allergy Reactions Criticality Noted Date Comments Amoxicillin Hives 11/08/2023 Penicillins Unknown 02/05/2015 As a child Medications albuterol sulfate HFA 108 (90 Base) MCG/ACT inhaler Inhale 1 puff into the lungs every 4 (four) hours as needed for Wheezing or Shortness of breath. 2 Active BLISOVI 24 FE 1-20 MG-MCG(24) tablet Take 1 tablet by mouth daily. 2 Active dicyclomine (BENTYL) 10 MG capsule Take 1 capsule (10 mg total) by mouth 4 (four) times daily before meals and nightly. 120 capsule 3 Active ondansetron (ZOFRAN-ODT) 4 MG disintegrating tablet Take 1 tablet (4 mg total) by mouth every 8 (eight) hours as needed for Nausea. 20 tablet 3 Active escitalopram (LEXAPRO) 10 MG tablet Take 4 tablets (40 mg total) by mouth daily. Active traZODone (DESYREL) 100 MG tablet Take 1 tablet (100 mg total) by mouth nightly at bedtime. Active Active Problems Problem Noted Date Diagnosed Date Abdominal pain, acute, right lower quadrant 12/26 Abdominal pain, acute, right upper quadrant 12/26 Scar 12/14/2017 Sebaceous cyst of ear 10/21/2017 Overview (10/09/2018): Transitioned From: Sebaceous cyst Anxiety 10/20/2017 Difficulty hearing 08/31/2017 Foot injury 08/30/2017 Depression 02/04/2017 Dysmenorrhea 02/04/2017 Irritable bowel syndrome 02/04/2017 Resolved Problems Problem Noted Date Diagnosed Date Resolved Date Well child visit 01/19/2017 06/06/2020 Immunizations Immunization Administration Dates Next Due Dtap (Generic) 05/09/2006, 3,2001,2001,2000 Hepatitis B Pediatric 2001,2001,05/28 Hib Vaccine, Prp-T 12/17/2002,2001, 002,2001 MMR (Generic) 05/09/2006,06/22/2002 Pneumococcal (Prevnar 13) 06/22/2002,2001, 2001,2001 Polio Ipv (Generic) 04/29/2006,03/05/2002,2001,2001 Varicella Vaccine 12/17/2002 Family History Medical History Relation Comments Diabetes Mother Hypertension Mother Relation Status Comments Mother Social History Tobacco Use Types Packs/Day Years Used Date Smoking Tobacco: Never Smokeless Tobacco: Never Tobacco Cessation:Counseling Given: Not Answered Alcohol Use Standard Drinks/Week Comments No 0 [...] on file Sexual Orientation Not on file Last Filed Vital Signs Vital Sign Reading Time Taken Comments Blood Pressure 105/54 11/08/2023 1:00 PM DIE TECHNICIAN Pulse 100 11/08/2023 12:00 PM DIE TECHNICIAN Temperature 36.5 C (97.7 F) 11/08/2023 9:01 AM DIE TECHNICIAN Respiratory Rate 18 11/08/2023 12:00 PM DIE TECHNICIAN Oxygen Saturation 100% 11/08/2023 1:00 PM DIE TECHNICIAN Inhaled Oxygen Concentration - - Weight 61.2 kg (135 lb) 11/08/2023 9:01 AM DIE TECHNICIAN Height 157.5 cm (5' 2) 11/08/2023 9:01 AM DIE TECHNICIAN Body Mass Index 24.69 11/08/2023 9:01 AM DIE TECHNICIAN Plan of Treatment Health Maintenance Due Date Last Done Comments Annual Physical 2004 DTaP, Tdap and Td Vaccines (6 - Tdap) 2012 05/09/2006, 12/17/2002, 12/17/2002, Additional history exists HPV Vaccines (1 - 3-dose series) 2016 Meningococcal B Vaccine (1 of 2 - Standard) 2017 Hepatitis C 2019 COVID-19 Vaccine ( season) 2024 Cervical Cancer Screening Pap Smear (Age 21 to 29) Every 3 Years 04/15/2026 04/15/2023 Cervical Cancer Screening 04/15/2026 Hepatitis B Vaccines Completed 2001, 2001, 2001, Additional history exists Pneumococcal Vaccine: Pediatrics (0 to 5 Years) and At-Risk Patients (6 to 49 Years) Completed 06/22/2002, 2001, 2001, Additional history exists Meningococcal Vaccine Aged Out No anderson evens eligible based on patient's age to complete this topic RSV Immunizations Under 20 Months Aged Out No longer eligible based on patient's age to complete this topic Insurance [facility] Care Teams Life Assurance Representative Relationship Specialty Start Date End Date Stevo Damon MD PCP - General FAMILY PRACTICE 02/14/19
--- OUTSIDE RECORDS SUMMARY | 2025-05-02 16:23 | XMS_ITS | Encounter Summary ---
Author Organization [facility] Address [facility] [place] [address] Care Team Providers Care Harness Builder Name Role Phone Stevo Damon MD Primary Care Provider [phone] Encounter Details Date Type Department Care Team (Late st Contact Info) Description 01/17/2020 [employer] Message [facility] Patient Accounts [address] [place] [address] [facility] Provider patient account balance Social History Tobacco Use Types Packs/Day Years [...] on file documented as of this encounter Plan of Treatment Not on file documented as of this encounter Visit Diagnoses Not on filedocumented in this encounter Additional Health Concerns Infection Onset Date Last Indicated Resolved Time COVID-19 Rule Out 01/13/2021 01/13/2021 01/14/2021 6:46 AM CDT documented as of this encounter Care Teams Harness Builder Relationship Specialty Start Date End Date Stevo Damon MD PCP - General FAMILY PRACTICE 02/14/19 documented as of this encounter
[2025-05-02 16:41] VITALS: BP 120/69; PULSE 82; RESP 16; TEMP 36.7; O2SAT 100
--- NOTE | 2025-05-02 16:47 | ED.ABDPAIN ---
HPI - Abdominal Pain General Chief Complaint: Abdominal Pain <Lyn Morris PA-C - Last Filed: 05/02/25 16:48> Stated Complaint: possible gallstones <Lyn Morris PA-C - Last Filed: 05/02/25 16:48> Time Seen by Provider: 05/02/25 19:04 <Lyn Morris PA-C - Last Filed: 05/02/25 16:48> Focused HPI: 24-year-old female presents to the emergency department with concerns for her gallbladder. Patient states for the past 3 days she has had intermittent right upper quadrant abdominal pain that radiates into her back. Over the past 24 hours the pain has become more constant. She states it is worse with eating and drinking, especially coffee and carbonated drinks. She contacted her PCP and was advised to come to the ED for further evaluation. She denies fever, nausea or vomiting, chest pain or shortness of breath, dysuria or hematuria. She does note history of IBS with chronic intermittent constipation and diarrhea which is unchanged from baseline. GENERAL: Well-appearing, well-nourished, and in no acute distress. HEAD: Normocephalic, atraumatic. CHEST: Clear to auscultation. ?No respiratory distress. ABD: Tenderness of the right upper quadrant on palpation. No rebound, guarding or rigidity. No CVA tenderness HEART: Regular rate and rhythm.? NEURO: ?Alert and oriented x3. Patient screened in triage and initial orders placed.? ?Additional care and disposition to be based upon?diagnostic testing and treatment. <Lyn Morris PA-C - Last Filed: 05/02/25 16:48> History of Present Illness HPI narrative: Agree with the above with the following additions/corrections: Patient states the pain in her right upper upper quadrant seems to be getting worse and particularly with eating and drinking. She has a history of IBS with variable diarrhea and constipation with no changes from baseline. Has appointment to see her embossing calender operator but not until May 24. Did a telehealth visit with primary care physician Dr. Damon through [facility] but because physical exam could not be performed, no further testing/imaging ordered. She rates her pain as 2 or 3/10 in severity and occurring intermittently. She believes this is because she has not eaten in several hours and food in particular exacerbates her symptoms. She has been using ibuprofen and Tylenol p.r.n.. She tries to limit her amount ibuprofen. Denies any nausea or vomiting. Last menstrual period was 04/07/2025. Shortness of breath or cough. Past abdominal surgery appendectomy. <Hazel Mccracken MD - Last Filed: 05/02/25 23:17> Related Data Allergies/Adverse Reactions: Allergies Allergy/AdvReac Type Severity Reaction Status Date / Time amoxicillin Allergy Intermediate Rash Verified 05/02/25 16:19 Penicillins Allergy Intermediate Rash Verified 05/02/25 16:19 <Lyn Morris PA-C - Last Filed: 05/02/25 16:48> PMFSH Past Medical History Medical History: Medical History IBS (irritable bowel syndrome) <Lyn Morris PA-C - Last Filed: 05/02/25 16:48> Surgical History Surgical History: Surgical History S/P appendectomy <Lyn Morris PA-C - Last Filed: 05/02/25 16:48> Social History Social History: Social History Smoking status: Never smoker Gender identity (if verbalized by the patient): Female Sexual Orientation (if Verbalized by the Patient): Straight or Heterosexual <Lyn Morris PA-C - Last Filed: 05/02/25 16:48> Exam Narrative: GENERAL: Well-appearing, well-nourished, and in no acute distress. HEAD: Normocephalic, atraumatic. EYES: Non injected, non icteric ENT: Nares clear, no rhinorrhea or epistaxis. Gross auditory acuity intact. NECK: Supple. No meningismus. CHEST: Speaking in full sentences. No respiratory distress. HEART: Regular rate and rhythm. . ABDOMEN: Soft, nondistended. No rigidity or guarding. Not peritoneal. Mild right upper quadrant tenderness to palpation. No tenderness to palpation in other quadrants. Low sign equivocal. EXTREMITIES: Normal range of motion. No lower extremity edema. SKIN: Warm, dry, no rash. NEURO: No focal deficits. Alert and oriented. Answering questions. Following commands. Normal speech without aphasia or dysarthria. PSYCH: Normal mood and affect. <Hazel Mccracken MD - Last Filed: 05/02/25 23:17> Course Vital Signs Vital signs: Vital Signs Temperature 98.1 F 05/02/25 16:41 Pulse Rate 82 05/02/25 16:41 Respiratory Rate 16 05/02/25 16:41 Blood Pressure 120/69 05/02/25 16:41 Pulse Oximetry 100 05/02/25 16:41 Oxygen Delivery Room Air 05/02/25 16:41 Temperature 97.8 F 05/02/25 18:52 Pulse Rate 76 05/02/25 18:52 Respiratory Rate 16 05/02/25 18:52 Blood Pressure 116/74 05/02/25 18:52 Pulse Oximetry 100 05/02/25 18:52 Oxygen Delivery Room Air 05/02/25 18:52 <Lyn Morris PA-C - Last Filed: 05/02/25 16:48> Vital Signs Temperature 98.1 F 05/02/25 16:41 Pulse Rate 82 05/02/25 16:41 Respiratory Rate 16 05/02/25 16:41 Blood Pressure 120/69 05/02/25 16:41 Pulse Oximetry 100 05/02/25 16:41 Oxygen Delivery Room Air 05/02/25 16:41 Temperature 97.8 F 05/02/25 18:52 Pulse Rate 76 05/02/25 18:52 Respiratory Rate 16 05/02/25 18:52 Blood Pressure 116/74 05/02/25 18:52 Pulse Oximetry 100 05/02/25 18:52 Oxygen Delivery Room Air 05/02/25 18:52 <Hazel Mccracken MD - Last Filed: 05/02/25 23:17> MDM - Abdominal Pain MDM Narrative Medical decision making narrative: 24-year-old female presents with right upper quadrant abdominal pain since Tuesday and getting worse. In the emergency department they are afebrile with vital signs within normal limits. She has a normocytic anemia, only 8.6 g drop from previous. Chemistry normal with appropriate renal function and no abnormalities of liver enzymes. test negative. CT with equivocal findings as below. Will proceed with ultrasound imaging of both locations. Results as below. This shows an involuting cyst. No further workup necessary. Her symptoms sound consistent with biliary colic. Discharged home in stable condition and provided prescriptions for analgesic medications. <Hazel Mccracken MD - Last Filed: 05/02/25 23:17> Differential Diagnosis Differential diagnosis: Likely abdominal pain, constipation, diverticulitis, endometriosis, pancreatitis, small bowel obstruction and other (Biliary etiology gastritis, GERD, peptic ulcer disease, hepatitis) <Hazel Mccracken MD - Last Filed: 05/02/25 23:17> Lab Data Attestation: I reviewed the patient's lab results. <Hazel Mccracken MD - Last Filed: 05/02/25 23:17> Result diagrams: 05/02/25 17:55 05/02/25 17:55 <Lyn Morris PA-C - Last Filed: 05/02/25 16:48> Labs: Lab Results 05/02/25 05/02/25 05/02/25 Range/Units 17:51 17:55 17:56 WBC 7.8 (4.5-10.0) K/mm3 RBC 4.22 (4.2-5.4) M/mm3 Hgb 11.9 L (12.0-15.0) g/dL Hct 36.9 L (37.0-47.0) % MCV 87.4 (80-100) fl MCH 28.2 (26-34) pg MCHC 32.2 (32-36) g/dl RDW 15.7 H (11.5-14.5) % Plt Count 222 (150-375) k/mm3 MPV 10.9 H (7.4-10.4) fl Immature Gran % (Auto) 0.3 (0-0.5) % Neut % (Auto) 65.3 (45.5-73.1) % Lymph % (Auto) 24.2 (18.3-44.2) % Roosevelt % (Auto) 7.8 (2.6-8.5) % Eos % (Auto) 1.8 (0-4.4) % Baso % (Auto) 0.6 (0.2-1.2) % Lymph # (Auto) 1.90 (0.9-3.2) K/mm3 Roosevelt # (Auto) 0.6 (0.1-0.6) K/mm3 Eos # (Auto) 0.1 (0-0.3) K/mm3 Baso # (Auto) 0.1 (0.0-0.1) K/mm3 Abs Immat Gran (auto) 0.02 (0.00-0.031) K/mm3 Absolute Neuts (auto) 5.1 (1.3-6.7) K/mm3 Absolute Nucleated RBC 0.000 (0.0-0.012) K/mm3 Nucleated RBC % 0.0 (0.0-0.2) % Sodium 138 (137-145) mmol/L Potassium 3.8 (3.4-5.0) mmol/L Chloride 106 (98-107) mmol/L Carbon Dioxide 23 (22-30) mmol/L Anion Gap 9 (4-12) mmol/L BUN 15 (7-17) mg/dL Creatinine 0.70 (0.7-1.0) mg/dL Estim Creat Clear Calc 81 ml/min Estimated GFR > 60 (59 - ) Glucose 80 (65-110) mg/dL Calcium 9.4 (8.4-10.2) mg/dL Total Bilirubin 1.0 (0.2-1.3) mg/dL AST 25 (14-36) U/L ALT 15 (6-35) U/L Alkaline Phosphatase 48 (38-126) U/L Total Protein 7.3 (6.3-8.2) g/dL Albumin 4.3 (3.5-5.1) g/dL Lipase 158 (23-300) U/L Urine Color Yellow (Yellow) Urine Appearance Cloudy H (Clear) Urine pH 6.0 (5.0-9.0) Ur Specific [place] 1.023 (1.001-1.035) Urine Protein Negative (Negative) mg/dL Urine Glucose (UA) Negative (Negative) mg/dL Urine Ketones Negative (Negative) mg/dL Ur Blood (Man) Negative (Negative) Urine Nitrate Negative (Negative) Urine Bilirubin Negative (Negative) Urine Urobilinogen 0.2 (<2.0) mg/dL Leukocyte Esterase Rfl Negative (Negative) KASHIF/UL Urine RBC 3-5 H (0-2) /hpf Urine WBC 0-5 (0-3) /hpf Ur Squamous Epith Cells Occasional (Few) /hpf Urine Bacteria None seen /hpf Urine Casts 0-2 POC Urine HCG, Qual Negative (Negative) <Lyn Morris PA-C - Last Filed: 05/02/25 16:48> Lab Results 05/02/25 05/02/25 05/02/25 Range/Units 17:51 17:55 17:56 WBC 7.8 (4.5-10.0) K/mm3 RBC 4.22 (4.2-5.4) M/mm3 Hgb 11.9 L (12.0-15.0) g/dL Hct 36.9 L (37.0-47.0) % MCV 87.4 (80-100) fl MCH 28.2 (26-34) pg MCHC 32.2 (32-36) g/dl RDW 15.7 H (11.5-14.5) % Plt Count 222 (150-375) k/mm3 MPV 10.9 H (7.4-10.4) fl Immature Gran % (Auto) 0.3 (0-0.5) % Neut % (Auto) 65.3 (45.5-73.1) % Lymph % (Auto) 24.2 (18.3-44.2) % Roosevelt % (Auto) 7.8 (2.6-8.5) % Eos % (Auto) 1.8 (0-4.4) % Baso % (Auto) 0.6 (0.2-1.2) % Lymph # (Auto) 1.90 (0.9-3.2) K/mm3 [place] # (Auto) 0.6 (0.1-0.6) K/mm3 Eos # (Auto) 0.1 (0-0.3) K/mm3 Baso # (Auto) 0.1 (0.0-0.1) K/mm3 Abs Immat Gran (auto) 0.02 (0.00-0.031) K/mm3 Absolute Neuts (auto) 5.1 (1.3-6.7) K/mm3 Absolute Nucleated RBC 0.000 (0.0-0.012) K/mm3 Nucleated RBC % 0.0 (0.0-0.2) % Sodium 138 (137-145) mmol/L Potassium 3.8 (3.4-5.0) mmol/L Chloride 106 (98-107) mmol/L Carbon Dioxide 23 (22-30) mmol/L Anion Gap 9 (4-12) mmol/L BUN 15 (7-17) mg/dL Creatinine 0.70 (0.7-1.0) mg/dL Estim Creat Clear Calc 81 ml/min Estimated GFR > 60 (59 - ) Glucose 80 (65-110) mg/dL Calcium 9.4 (8.4-10.2) mg/dL Total Bilirubin 1.0 (0.2-1.3) mg/dL AST 25 (14-36) U/L ALT 15 (6-35) U/L Alkaline Phosphatase 48 (38-126) U/L Total Protein 7.3 (6.3-8.2) g/dL Albumin 4.3 (3.5-5.1) g/dL Lipase 158 (23-300) U/L Urine Color Yellow (Yellow) Urine Appearance Cloudy H (Clear) Urine pH 6.0 (5.0-9.0) Ur Specific [place] 1.023 (1.001-1.035) Urine Protein Negative (Negative) mg/dL Urine Glucose (UA) Negative (Negative) mg/dL Urine Ketones Negative (Negative) mg/dL Ur Blood (Man) Negative (Negative) Urine Nitrate Negative (Negative) Urine Bilirubin Negative (Negative) Urine Urobilinogen 0.2 (<2.0) mg/dL Leukocyte Esterase Rfl Negative (Negative) KASHIF/UL Urine RBC 3-5 H (0-2) /hpf Urine WBC 0-5 (0-3) /hpf Ur Squamous Epith Cells Occasional (Few) /hpf Urine Bacteria None seen /hpf Urine Casts 0-2 POC Urine HCG, Qual Negative (Negative) <Hazel Mccracken MD - Last Filed: 05/02/25 23:17> Imaging Data Radiologist's impression: ITS Impressions Abdomen/Pelvis CT 05/02/25 19:26 IMPRESSION: 17 mm involuting cyst within the right ovary, for which ultrasound examination may be performed for confirmation. Dense free fluid within the right hemipelvis, possibly physiologic. The gallbladder is only minimally distended suggesting recent oral intake for which clinical correlation is needed. Abdomen Ultrasound 05/02/25 21:42 IMPRESSION: Limited evaluation of the pancreas secondary to overlying bowel gas Phasic waveform within the portal vein. Otherwise, unremarkable sonographic evaluation of the right upper quadrant, as detailed above. Pelvis Ultrasound 05/02/25 21:50 IMPRESSION: Redemonstration of the involuting cyst seen on CT examination for which no further follow-up is needed. Remainder of examination, is as detailed above. <Lyn Morris PA-C - Last Filed: 05/02/25 16:48> ITS Impressions Abdomen/Pelvis CT 05/02/25 19:26 IMPRESSION: 17 mm involuting cyst within the right ovary, for which ultrasound examination may be performed for confirmation. Dense free fluid within the right hemipelvis, possibly physiologic. The gallbladder is only minimally distended suggesting recent oral intake for which clinical correlation is needed. Abdomen Ultrasound 05/02/25 21:42 IMPRESSION: Limited evaluation of the pancreas secondary to overlying bowel gas Phasic waveform within the portal vein. Otherwise, unremarkable sonographic evaluation of the right upper quadrant, as detailed above. Pelvis Ultrasound 05/02/25 21:50 IMPRESSION: Redemonstration of the involuting cyst seen on CT examination for which no further follow-up is needed. Remainder of examination, is as detailed above. <Hazel Mccracken MD - Last Filed: 05/02/25 23:17> Discharge Plan Discharge Clinical Impression: Right upper quadrant abdominal pain, Normocytic anemia, Cyst of right ovary, Biliary colic <Lyn Morris PA-C - Last Filed: 05/02/25 16:48> Patient Disposition: Home <Lyn Morris PA-C - Last Filed: 05/02/25 16:48> Condition: Stable <THEA Adams Last Filed: 05/02/25 16:48> Instructions: Antibiotic Form, Ovarian Cyst (ED), Biliary Colic (ED), Abdominal Pain (ED), Anemia (ED) <Lyn Morris PA-C - Last Filed: 05/02/25 16:48> Additional Instructions: The location and description of your symptoms sound consistent with biliary colic. No acute surgical process on your imaging. Recommend modifying your diet to see if symptoms improve. Acetaminophen/Tylenol (maximum 4000 mg per day) is safe to take with NSAIDs (ibuprofen/Motrin) for pain relief. There was evidence of an involuting ovarian cyst. No further follow-up is necessary for this as these are often normal due to hormonal changes. NSAIDs such as ibuprofen/Motrin are often effective for these because they work on both pain and inflammation. Follow-up with your primary care doctor. If you need in switching clerk, the name of a doctor is listed below. Return to the emergency department with any new or worsening symptoms. Keep your upcoming appointment with her embossing calender operator. <Lyn Morris PA-C - Last Filed: 05/02/25 16:48> Patient Language: Guatemalan <Lyn Morris PA-C - Last Filed: 05/02/25 16:48> Prescriptions: New acetaminophen 650 mg tablet extended release 650 mg PO Q8H PRN (Reason: pain) Qty: 30 0RF ibuprofen 600 mg tablet 600 mg PO TID PRN (Reason: pain) Qty: 30 0RF No Action mupirocin [Centany] 2 % ointment 1 applic topical BID 7 Days Qty: 22 0RF <Lyn Morris PA-C - Last Filed: 05/02/25 16:48> Follow-up/Referrals: Regulo Mcgrath MD [Physician] - Damon,MD Stevo [Primary Care Provider] - <Lyn Morris PA-C - Last Filed: 05/02/25 16:48> Stand Alone Forms: Work/School Release IP <Lyn Morris PA-C - Last Filed: 05/02/25 16:48> Time of Disposition: 22:42 <Lyn Morris PA-C - Last Filed: 05/02/25 16:48> 22:42 <Hazel Mccracken MD - Last Filed: 05/02/25 23:17>
[2025-05-02 17:58] LABS: BEDSIDEPREGUCG Negative (Negative)
[2025-05-02 18:05] LABS: Hematocrit 36.9 % (37.0-47.0); Hemoglobin 11.9 g/dL (12.0-15.0); Immature Granulocyte Percent A 0.3 % (0-0.5); Lymphocytes Absolute Auto 1.90 K/mm3 (0.9-3.2); Mean Corpuscular HGB Conc 32.2 g/dl (32-36); Mean Corpuscular Hemoglobin 28.2 pg (26-34); Mean Corpuscular Volume 87.4 fl (80-100); Nucleated Red Blood Cells Absolute Auto 0.000 K/mm3 (0.0-0.012); Nucleated Red Blood Cells Perc 0.0 % (0.0-0.2); Platelet Count Result 222 k/mm3 (150-375); Red Blood Count 4.22 M/mm3 (4.2-5.4); White Blood Count 7.8 K/mm3 (4.5-10.0)
[2025-05-02 18:08] LABS: Add Urine Microscopic? YES; Appearance Urine Cloudy (Clear); Glucose Urine UA Negative (Negative); Leukocyte Esterase Ur Negative LEU/UL (Negative); Nitrate Urine Negative (Negative); Non Pathogenic Casts 0-2; Specific Grav Ur 1.023 (1.001-1.035)
[2025-05-02 18:15] LABS: Alanine Aminotransferase 15 U/L (6-35); Albumin Level 4.3 g/dL (3.5-5.1); Alkaline Phosphatase 48 U/L (38-126); Anion Gap 9 mmol/L (4-12); Aspartate Amino Transferase 25 U/L (14-36); Bilirubin,Total 1.0 mg/dL (0.2-1.3); Blood Urea Nitrogen 15 mg/dL (7-17); Calcium 9.4 mg/dL (8.4-10.2); Carbon Dioxide 23 mmol/L (22-30); Chloride 106 mmol/L (98-107); Estimated CRCL calculation 81 ml/min; Estimated Glomerular Filt Rate > 60; Glucose 80 mg/dL (65-110); Lipase 158 U/L (23-300); Potassium 3.8 mmol/L (3.4-5.0); Sodium 138 mmol/L (137-145); Total Protein 7.3 g/dL (6.3-8.2)
[2025-05-02 18:52] VITALS: BP 116/74; PULSE 76; RESP 16; TEMP 36.6; O2SAT 100
--- OUTSIDE RECORDS SUMMARY | 2025-05-02 19:25 | XMS_ITS | Encounter Summary ---
Author Organization [facility] Healthcare Address [address] [place] [address] Care Team Providers Care Blasting Helper Name Role Phone Stevo Damon MD Primary Care Provider [phone] Reason for Visit * Reason Onset Date Comments Abdominal Pain 05/02/2025 Encounter Details Date Type Department Care Team (Late st Contact Info) Description 05/02/2025 Nurse Triage [facility] Medical [facility] Family Medicine at [address] [place] [address] Stevo Damon MD [address] [place] [id number] Social History Tobacco Use Types Packs/Day [...] on file 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
--- OUTSIDE RECORDS SUMMARY | 2025-05-02 19:25 | XMS_ITS | Continuity of Care Document ---
Author Organization [facility] Address [address] [place] [address] Phone Care Team Providers Care Band Bias Machine Operator Name Role Phone Yolis PT, YOVANIT, Glenn Unavailable Unavailable Procedures Procedure Date Therapeutic Activities Manual Therapy Therapeutic Activities Therapeutic Exercise Manual Therapy PT Evaluation Moderate Complexity Therapeutic Activities Therapeutic Exercise Manual Therapy Advance Directives Directive Yes / No Effective Date File Name No Information Encounters Encounter Description Practice Location Reason(s) For Visit Diagnoses Date Provider Providers Copied on Encounter [facility], [address] [address], [place], [place], [id number], tel:[phone] [place] No Information 4 Yolis Elizabeth. . [facility] [facility], [place], [place], [id number], tel:[phone] [place] No Information 4 Andrey Graham. . Referring Provider: Mishel Gan, [facility] [address], [place], [address]. tel:[phone] [facility], [address], [place], [place], [id number], tel:[phone] [place] No Information 4 Balderas Gladys. . Referring Provider: Mishel Gan, [address], [place], [address]. tel:[phone] [facility] [place], [address], [place], [place], [id number], tel:[phone] [place] No Information 4 Andrey Graham. . Referring Provider: Mishel Gan, [address] [place] [address] [address], [place], [address]. tel:[phone] Family History Family Member Type Diagnosis Age At Onset No Information Payers Payer name Insurance type Covered libertarian ID Authoriza tilayla(s) [facility] CI [id number] Social History Type Description Quantity Date Captured Comments Sex Female Smoking Status No Information Chief Complaint And Reason For Visit No Information Reason For Referral Reason For Referral No Information History Of Present Illness Encounter Date Complaint History Of Prese nt Illness No Information Functional Status Date Functional Assessmen t No Information Instructions Date Instruction Additional Infor mation No Information Assessments Type Assessment Date No Information Patient Care Teams Name Effective Dates (start - stop) Status Members No Information
--- OUTSIDE RECORDS SUMMARY | 2025-05-02 19:25 | XMS_ITS | Encounter Summary ---
Author Organization [facility] Address [facility] [place] [address] Care Team Providers Care Furniture Inspector Name Role Phone Stevo Damon MD Primary Care Provider [phone] Encounter Details Date Type Department Care Team (Late st Contact Info) Description 01/17/[address] [employer] [address] [facility] Patient Accounts [address] [place] [address] [facility] Provider patient account balance Social History Tobacco [...] documented as of this encounter Care Teams Furniture Inspector Relationship Specialty Start Date End Date Stevo Damon MD PCP - General FAMILY PRACTICE 02/14/19 documented as of this encounter
--- OUTSIDE RECORDS SUMMARY | 2025-05-02 19:25 | XMS_ITS | Clinical Summary ---
Author Organization [facility] Address [address] [place] [address] Care Team Providers Care Production Line Assembler Name Role Phone Stevo Damon MD Primary Care Provider [phone] Allergies Active Allergy Reactions Criticality Noted Date [...] Comments Blood Pressure 105/54 11/08/2023 1:00 PM ASSEMBLER [employer] Pulse 100 11/08/2023 12:00 PM ASSEMBLER [employer] Temperature 36.5 C (97.7 F) 11/08/2023 9:01 AM ASSEMBLER [employer] Respiratory Rate 18 11/08/2023 12:00 PM ASSEMBLER [employer] Oxygen Saturation 100% 11/08/2023 1:00 PM ASSEMBLER [employer]ATHER [employer] Inhaled Oxygen Concentration - - Weight 61.2 kg (135 lb) 11/08/2023 9:01 AM ASSEMBLER LEATHER [employer] Height 157.5 cm (5' 2) 11/08/2023 9:01 AM ASSEMBLER LEATHER GOODS Body Mass Index 24.69 11/08/2023 9:01 AM ASSEMBLER LEATHER GOODS Plan of Treatment Health Maintenance Due Date [...] patient's age to complete this topic Insurance [facility] Care Teams Production Line Assembler Relationship Specialty Start Date End Date Stevo Damon MD PCP - General FAMILY PRACTICE 02/14/19
--- OUTSIDE RECORDS SUMMARY | 2025-05-02 19:25 | XMS_ITS | Encounter Summary ---
Author Organization [facility] Address [address] [place] [address] Care Team Providers Care Metal Mine Inspector Name Role Phone Stevo Damon MD Primary Care Provider Encounter Details Date Type Department Care Team (Late st Contact Info) Description 10/18/2022 [email or web address] Message [employer] HEALTH INFORMATION MANAGEMENT [address] [place] [address] [employer], [facility] Provider Patient Name Change Request Social History [...] Coronavirus/COVID-19? No / Unsure 10/17/2022 12:26 PM DIRECTOR GLOBAL documented as of this encounter Plan of Treatment Not on file documented as of this encounter Visit Diagnoses Not on filedocumented in this encounter Care Teams Metal Mine Inspector Relationship Specialty Start Date End Date Stevo Damon MD PCP - General FAMILY PRACTICE 02/14/19 documented as of this encounter
--- OUTSIDE RECORDS SUMMARY | 2025-05-02 19:25 | XMS_ITS | Encounter Summary ---
Author Organization [facility] Address [address] [place] [address] Care Team Providers Care Barmaid Name Role Phone Stevo Damon MD Primary Care Provider [phone] Encounter Details Date Type Department Care Team (Late st Contact Info) Description 01/12/2021 Prep for Procedure [facility] [place] [address] Tom Oropeza MD [address] [place] [address] Social History Tobacco Use Types [...] DETECTED NOT DETECTED 01/14/2021 6:46 AM CDT [employer] [facility] Comment: A Not Detected (negative) test result [...] providers and patients using the following websites: https://www.[employer]X.com/home/Covid-19/HCP/rc- vqel-rki3-hcnn-sheet.html https://www.[employer].com/home/Covid-19/Patients/ jq-sbpe-iat1-fact-sheet.html This test has been authorized by the FDA under an Emergency Use Authorization (EUA) for use by authorized laboratories. Due to the current public health emergency, [facility] is receiving a high volume of samples [...] about COVID-19 can be found at the [facility] website: www.[employer].com/Covid19. Test performed at [facility] [place] [address] [address] [address] Director: KAREN VERGARA DO,MPH FIRST TEST UNKNOWN 01/13/2021 10:19 AM CDT [facility] EMPLOYED IN HEALTHCARE NO 01/13/2021 10:19 AM CDT [facility] SYMPTOMATIC DEFINED BY CDC UNKNOWN 01/13/2021 10:19 AM CDT [facility] DATE OF SYMPTOM ONSET NO 01/13/2021 11:03 AM CDT [facility] HOSPITALIZATION STATUS NO 01/13/2021 10:19 AM CDT [facility] PATIENT IN ICU NO 01/13/2021 10:19 AM CDT [facility] RESIDENT OF CONGREGATE CARE NO 01/13/2021 10:19 AM CDT [facility] UNKNOWN 01/13/2021 10:19 AM CDT [facility] PATIENT'S RACE WHITE OR 01/13/2021 10:19 AM CDT [facility] ETHNICITY NONHISPANIC 01/13/2021 10:19 AM CDT [facility] SOURCE (QST) NASOPHARYNGEAL SWAB 01/13/2021 10:19 AM CDT [facility] NASOPHARYNGEAL SWAB / Unknown 01/13/2021 10:05 AM CDT us Tom Oropeza MD MICROBIOLOGY - GENE RAL ORDERABLES Final Result [facility] [address] [facility] [place] [address], [place] [phone] [employer] [facility] [address] [place] [address], documented in this encounter Visit Diagnoses Diagnosis Abdominal pain- Primary Abdominal pain, unspecified site documented in this encounter Additional Health Concerns Infection Onset Date Last Indicated Resolved Time COVID-19 Rule Out 01/13/2021 01/13/2021 01/14/2021 6:46 AM CDT documented as of this encounter Care Teams Barmaid Relationship Specialty Start Date End Date Stevo Damon MD PCP - General FAMILY PRACTICE 02/14/19 documented as of this encounter
--- OUTSIDE RECORDS SUMMARY | 2025-05-02 19:25 | XMS_ITS | Clinical Summary ---
Author Organization [facility] Address [address] [place] [address] Care Team Providers Care Engraving Patternmaker Name Role Phone Stevo Damon MD Primary Care Provider [phone] Allergies Active Allergy Reactions Criticality Noted Date [...] 023 Assessment & Plan (08/04/2023 10:43 AM DEPUTY COMMISSIONER): Mother diagnosed with colon cancer in her 30s and in her early 40s. Patient states her paternal grandfather also had colon cancer. Diarrhea 08/04/2023 Assessment & Plan (08/04/2023 10:43 AM DEPUTY COMMISSIONER): Chronic diarrhea for the past few years. [...] 09/12/2019 Assessment & Plan (09/12/2019 3:43 PM DEPUTY COMMISSIONER): Overall Condition: New Acute Problem Treatment: New Medication: Zofran Follow up PRN Lower abdominal pain 06/04/2019 Assessment & Plan (06/04/2019 1:10 PM CDT): Overall Condition: New Acute Problem Treatment: New Medication: Continue PPI. and Imaging: Pelvic Ultrasound and Benefits Sales Consultant Referral. Follow up PRN Psychophysiological insomnia 03/05/2019 [...] 02/04/2017 Assessment & Plan (10/09/2020 2:12 PM DEPUTY COMMISSIONER): Overall Condition New Diagnosis. Treatment: New Medication: [...] for resolution of rash, can use topical euxm-uqd-anunlrn steroid cream and antihistamine such as Benadryl [...] Telemedicine [facility] [address] [place] [phone] Rochelle Segura, ACTIVITY ASSISTANT RUQ abdominal pain (Primary Dx) 05/02/2025 Nurse Triage [facility] Family Medicine at [address] [place] [id number] Stevo Damon MD 02/20/2025 Telephone [facility] Family Medicine at [address] [place] [address] Stevo Damon MD Medication Request 02/20/2025 Telephone [facility] Obstetrical Gynecology [address] [place] [address] [place] [phone] Jr Bardales MD 02/20/2025 Patient Self-Triage [facility]/ Physicians [address] [place] [address] Mychart, Generic Provider 02/13/2025 Nurse Triage [facility] Medicine at [address] [place] [address] Stevo Damon MD from Last 3 Months [...] Comments Brother Alive Father Alive Mother Rose Galvez Other 1 Other 2 Sister Alive Social [...] on file Legal Sex Female 5:35 AM DEPUTY COMMISSIONER Gender Identity Not on file Sexual Orientation [...] AMAURY GONZALEZ Comment:Testing performed by : [facility], [address] [place] [address]., [address] N. gonorrhoeae Not Detected Not Detected AMAURY GONZALEZ Comment: Interpretive Data Testing performed by the [facility]. This assay detects Chlamydia trachomatis [...] revised on 2019. Testing performed by: [facility], [address] [place] [address]., [address] Urine (None) 06/10/2023 6:42 PM CDT 06/10/2023 7:30 PM CDT us [facility] SANCHE[facility] LAB MICROBIOLOGY - GENERAL ORDE JOCELYNN Final Result AMAURY GONZALEZ [address] [facility] Department of [place] [address] * Pap with reflex to High Risk HPV and Genotyping (Cytology Component) (04/15/2023 9:47 AM CDT) Thin prep (Pap test) 04/15/2023 9:47 AM CDT 04/18/2023 9:47 AM CDT Narrative PATHOLOGY [facility] - 04/21/2023 11:57 AM CDT [facility] Department of Pathology [address] [place], [place] [id number] Final Report Note to Patients: This report [...] the details. Patient Name: RHIANNON LANDERS Address: [address] [place] [address] Gender: F : 2000 (Age: 22) Service: Location: N : [id number] Hospital #: [id number] Patient Type: [facility] SPECIMEN Taken: 04/15/2023 Received: 04/18/2023 Accessioned:: 04/19/2023 Reported: 04/21/2023 Physician(s): Saira Joe, [facility] Diagnosis: SOURCE OF SPECIMEN Imaged Thinprep Pap Test w/ Reflex HPV - Benefits Sales Consultant Cytologic Material: STATEMENT OF ADEQUACY - Satisfactory for evaluation; endocervical/transformation zone component present GENERAL CATEGORIZATION: - Negative for intraepithelial lesion or malignancy ELLIE Diaz(ASCP)ELLIE Richardson(ASCP) Report Electronically Reviewed and Signed Out By ELLIE Richardson(ASCP) 04/21/2023 11:57:53Specimen(s) Received: A: Imaged Thinprep Pap Test w/ Reflex HPV - Benefits Sales Consultant Cytologic Material Clinical History: Last Menstrual Period: [...] determined by the Surgical Pathology Department at [facility] as part of an ongoing billing and quality technician program and in compliance with federally mandated [...] characteristics determined by the Surgical Pathology Department [facility]. It has not been cleared or approved by the U. S. Food and Drug Administration. Saira SAUNDERS LAB CYTOLOGY ORDERABLES Final Result Performing Organization Address City/State/[facility] Co de Phone Number [facility] from Last 3 Months or Most Recently Relevant to Health Maintenance Insurance [facility] CHOICE PLUS [facility] CHOICE PLUS [facility] CHOICE PLUS Care Teams Engraving Patternmaker Relationship Specialty Start Date End Date Stevo Damon MD PCP - General Family Medicine 02/01/19
--- OUTSIDE RECORDS SUMMARY | 2025-05-02 19:25 | XMS_ITS | Encounter Summary ---
Author Organization [facility] Healthcare Address [address] [place] [address] Care Team Providers Care Head Athletic Trainer/Strength Coach Name Role Phone Stevo Damon MD Primary Care Provider [phone] Reason for Visit * Reason Comments Abdominal Pain RUQ Encounter Details Date Type Department Care Team (Late st Contact Info) Description 05/02/2025 12:15 PM CDT Telemedicine [facility] Medical [facility] Virtual Care [address] [place] [phone] Rochelle Segura, ADULT SECONDARY EDUCATION INSTRUCTOR [address] [facility] [address] [place] [address] RUQ abdominal pain (Primary Dx) [...] on file Legal Sex Female 5:35 AM UNIT MANAGER RN Gender Identity Not on file Sexual Orientation [...] meet your needs. Thank you for choosing [facility]! Hope you feel better soon! Rochelle Segura NP documented in this encounter Progress Notes * Rochelle Segura NP - 05/02/2025 12:15 PM CDT Images from the original note were not included. This was a telemedicine visit with Rhiannon Landers alone which took place via real- time video connection with [facility]. During the visit, I was located at home and the patient was located at home in the state [facility]. The patient visit started at 12:12 [...] documented as of this encounter Care Teams Head Athletic Trainer/Strength Coach Relationship Specialty Start Date End Date Stevo Damon MD PCP - General Family Medicine 02/01/19 documented as of this encounter
[2025-05-02 23:11] VITALS: BP 124/70; PULSE 77; RESP 18; O2SAT 99
== END 2025-05-02 23:11 | disposition home or self-care (01) ==
PROVIDERS: Physician Assistant; Emergency Provider Student in an Organized Health Care Education/Training Program; PCP Family Medicine
DX: R10.11 Right upper quadrant pain (principal); N83.201 Unspecified ovarian cyst, right side; D64.9 Anemia, unspecified; K58.2 Mixed irritable bowel syndrome
CPT/HCPCS: 36415; 74177; 76705; 76856; 80053; 81001; 81025; 83690; 85025; 99284; Q9967

== ENCOUNTER 2025-06-14 14:07 | Outpatient (CLI) | payer OTHER, SELFPAY ==
--- OUTSIDE RECORDS SUMMARY | 2025-06-14 14:12 | XMS_ITS | Encounter Summary ---
Author Organization [facility] Address [facility] [place] [address] Care Team Providers Care Product Marketer Name Role Phone Stevo Damon MD Primary Care Provider [phone] Encounter Details Date Type Department Care Team (Late st Contact Info) Description 01/17/2020 [employer] Message [facility] Patient Accounts [address] [place] [address] [facility] Provider patient account balance Social History Tobacco [...] documented as of this encounter Care Teams Product Marketer Relationship Specialty Start Date End Date Stevo Damon MD PCP - General FAMILY PRACTICE 02/14/19 documented as of this encounter
--- OUTSIDE RECORDS SUMMARY | 2025-06-14 14:12 | XMS_ITS | Encounter Summary ---
Author Organization [facility] Address [address] [place] [address] Care Team Providers Care Legislative Director Name Role Phone Stevo Damon MD Primary Care Provider [phone] Encounter Details Date Type Department Care Team (Late st Contact Info) Description 01/12/2021 Prep for Procedure [facility] [place] [address] Tom Oropeza MD [address] [place] [address] Social History Tobacco Use Types [...] DETECTED NOT DETECTED 01/14/2021 6:46 AM CDT [facility] [employer] [facility] Comment: A Not Detected (negative) test result [...] providers and patients using the following websites: https://www.[employer].com/home/Covid-19/HCP/rc- noqm-asb4-apag-sheet.html https://www.[employer].com/home/Covid-19/Patients/ fj-loyj-zof5-fact-sheet.html This test has been authorized by the FDA under an Emergency Use Authorization (EUA) for use by authorized laboratories. Due to the current public health emergency, [employer] is receiving a high volume of samples [...] about COVID-19 can be found at the [employer] website: www.[employer].com/Covid19. Test performed at [facility] [address] [phone] Director: KAREN VERGARA DO,MPH FIRST TEST UNKNOWN 01/13/2021 10:19 AM CDT [facility] EMPLOYED IN HEALTHCARE NO 01/13/2021 10:19 AM CDT [facility] SYMPTOMATIC DEFINED BY CDC UNKNOWN 01/13/2021 10:19 AM CDT [facility] DATE OF SYMPTOM ONSET NO 01/13/2021 11:03 AM CDT [facility] HOSPITALIZATION STATUS NO 01/13/2021 10:19 AM CDT [facility] PATIENT IN ICU NO 01/13/2021 10:19 AM CDT [facility] RESIDENT OF CONGREGATE CARE NO 01/13/2021 10:19 AM CDT [facility] UNKNOWN 01/13/2021 10:19 AM CDT [facility] PATIENT'S RACE WHITE OR 01/13/2021 10:19 AM CDT [facility] ETHNICITY NONHISPANIC 01/13/2021 10:19 AM CDT [facility] SOURCE (QST) NASOPHARYNGEAL SWAB 01/13/2021 10:19 AM CDT [facility] NASOPHARYNGEAL SWAB / Unknown 01/13/2021 10:05 AM CDT us Tom Oropeza MD MICROBIOLOGY - GENE RAL ORDERABLES Final Result [facility] [address] [place] [address], [place] [phone] [employer] [facility] [address] [place] [address], documented in this encounter Visit Diagnoses Diagnosis Abdominal pain- Primary Abdominal pain, unspecified site documented in this encounter Additional Health Concerns Infection Onset Date Last Indicated Resolved Time COVID-19 Rule Out 01/13/2021 01/13/2021 01/14/2021 6:46 AM CDT documented as of this encounter Care Teams Legislative Director Relationship Specialty Start Date End Date Stevo Damon MD PCP - General FAMILY PRACTICE 02/14/19 documented as of this encounter
--- OUTSIDE RECORDS SUMMARY | 2025-06-14 14:12 | XMS_ITS | Clinical Summary ---
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 Patient states her paternal grandfather also had colon cancer. Diarrhea 08/04/2023 Assessment & Plan (08/04/2023 10:43 AM COTTON FARMER): Chronic diarrhea for the past few years. [...] 09/12/2019 Assessment & Plan (09/12/2019 3:43 PM COTTON FARMER): Overall Condition: New Acute Problem Treatment: New Medication: Zofran Follow up PRN Lower abdominal pain 06/04/2019 Assessment & Plan (06/04/2019 1:10 PM CDT): Overall Condition: New Acute Problem Treatment: New Medication: Continue PPI. and Imaging: Pelvic Ultrasound and Nursing Faculty Referral. Follow up PRN Psychophysiological insomnia 03/05/2019 [...] 02/04/2017 Assessment & Plan (10/09/2020 2:12 PM COTTON FARMER): Overall Condition New Diagnosis. Treatment: New Medication: [...] for resolution of rash, can use topical vqiy-cql-wcvyaue steroid cream and antihistamine such as Benadryl [...] Encounters Date Type Department Care Team Description 05/15/2025 Telephone [facility] Medical [facility] Family Medicine at [address] [place] [address] Stevo Damon MD Referral Request 05/06/2025 1:00 PM CDT Office Visit [facility] Family Medicine at [address] [place] [address] Stevo Damon MD Biliary colic (Primary Dx) 05/03/2025 Telephone [facility] Family Medicine at [address] [place] [address] Stevo Damon MD Recommendation Request 05/02/2025 12:15 PM CDT Telemedicine [facility] Virtual Care [address] [place] [address] Rochelle Segura, TESTING SPECIALIST RUQ abdominal pain (Primary Dx) 05/02/2025 Nurse Triage [facility] Family Medicine at [address] [place] [address] Stevo Damon MD from Last 3 Months [...] drink = 0.6 oz pur e alcohol) PHQ-2 Answer Date Recorded PHQ-2 Total Score (If total score is 3 or more points, staff should administer the PHQ-9) 0 05/06/2025 PHQ-9 Answer Date Recorded PHQ-9 Total Score 0 06/13/2024 AUDIT-C Answer Date Recorded Q1: How often do you have a drink containing alcohol? Never 05/06/2025 Q2: How many drinks containi ng alcohol do you have on a typical day when you are drinking? Patient does not drink Q3: How often do you have si x or more drinks on one occasion? Never 05/06/2025 Personal Safety Answer Date Recorded Have you ever been in or are you currently in a harmful physical or emotional relationship or is someone making you feel afraid or unsafe? Denies 10/17/2023 Comments No Sex and Gender Information Value Date Recorded Sex Assigned at Not on file Legal Sex Female 5:35 AM COTTON FARMER Gender Identity Not on file Sexual Orientation Not on file Obstetrics History Para Term AB IAB SAB Ectopic Multiple Livin g Live Births 0 0 0 0 0 0 0 0 0 0 0 Last Filed Vital Signs Vital Sign Reading Time Taken Comments Blood Pressure 104/68 05/06/2025 1:10 PM CDT Pulse 72 05/06/2025 1:10 PM CDT Temperature 36.6 C (97.8 F) 05/06/2025 1:10 PM CDT Respiratory Rate 14 05/06/2025 1:10 PM CDT Oxygen Saturation 99% 05/06/2025 1:10 PM CDT Inhaled Oxygen Concentration - - Weight 53 kg (116 lb 14.4 oz) 05/06/2025 1:10 PM CDT Height 157.5 cm (5' 2.01) 05/06/2025 1:10 PM CD T Body Mass Index 21.38 05/06/2025 1:10 PM CDT Plan of Treatment Health Maintenance Due Date Last Done Comments Hepatitis C Screening 2001 HPV Vaccines (1 - 3-dose series) 2016 Meningococcal B Vaccine (1 o f 2 - Standard) 2017 Cervical Cancer Screening 04/15/2024 04/15/2023 Chlamydia and Gonorrhea (GC/ CT) Screening 06/10/2024 06/10/2023, 04/15/2023 Regular Well Visit/Exam 18-64 06/13/2025, 07/09/2022, 11/05/2019 Depression Screening 05/06/2026 05/06/2025, 06/13/2024, 06/13/2024, Additional history exists DTaP/Tdap/Td Vaccine (7 - Td or Tdap) [...] Detected AMAURY GONZALEZ Comment:Testing performed by : [facility], [address] [place] [address]., [address] N. gonorrhoeae Not Detected Not Detected AMAURY GONZALEZ Comment: Interpretive Data Testing performed by the [facility]. This assay detects Chlamydia trachomatis [...] last revised on 2019. Testing performed by: [facility], [address] [place] [address]., [address] Urine (None) 06/10/2023 6:42 PM CDT 06/10/2023 7:30 PM CDT Tati SANCHEZ LAB MICROBIOLOGY - GENERAL JULISSA CABEZAS Final Result AMAURY GONZALEZ [address] [facility] [place] [address] * Pap with reflex to High Risk HPV and Genotyping (Cytology Component) (04/15/2023 9:47 AM CDT) Thin prep (Pap test) 04/15/2023 9:47 AM CDT 04/18/2023 9:47 AM CDT Narrative PATHOLOGY [facility] - 04/21/2023 11:57 AM CDT [facility] Department of Pathology [address] [place] [address] Final Report Note to Patients: This report [...] the details. Patient Name: RHIANNON LANDERS Address: [address] [place] [address] Gender: F : 2000 (Age: 22) Service: Location: [facility] #: [id number] Patient Type: MHE SPECIMEN Taken: 04/15/2023 Received: 04/18/2023 Accessioned:: 04/19/2023 Reported: 04/21/2023 Physician(s): Saira Joe, [facility] Diagnosis: SOURCE OF SPECIMEN Imaged Thinprep Pap Test w/ Reflex HPV - Nursing Faculty Cytologic Material: STATEMENT OF ADEQUACY - Satisfactory for evaluation; endocervical/transformation zone component present GENERAL CATEGORIZATION: - Negative for intraepithelial lesion or malignancy ELLIE Diaz(ASCP)ELLIE Richardson(ASCP) Report Electronically Reviewed and Signed Out By ELLIE Richardson(ASCP) 04/21/2023 11:57:53Specimen(s) Received: A: Imaged Thinprep Pap Test w/ Reflex HPV - Nursing Faculty Cytologic Material Clinical History: Last Menstrual Period: [...] determined by the Surgical Pathology Department at [facility] as part of an ongoing chemistry quality control technician program and in compliance with federally [...] characteristics determined by the Surgical Pathology Department [facility]. It has not been cleared or approved by the U. S. Food and Drug Administration. Saira Joe CNM LAB CYTOLOGY ORDERABLES Final Result [facility] from Last 3 Months or Most Recently Relevant to Health Maintenance Insurance [facility] Care Teams Rug Underlay Machine Operator Relationship Specialty Start Date End Date Stevo Damon MD PCP - General Family Medicine 02/01/19
--- OUTSIDE RECORDS SUMMARY | 2025-06-14 14:12 | XMS_ITS | Encounter Summary ---
Author Organization [facility] Address [address] [place] [address] Care Team Providers Care Energy Efficiency Finance Manager Name Role Phone Stevo Damon MD Primary Care Provider [phone] Encounter Details Date Type Department Care Team (Late st Contact Info) Description 10/18/2022 [employer] Message [employer] HEALTH INFORMATION MANAGEMENT [address] [place] [address] [employer], [facility] Provider Patient Name Change Request Social History [...] Coronavirus/COVID-19? No / Unsure 10/17/2022 12:26 PM LOOM FIXER SUPERVISOR documented as of this encounter Plan of Treatment Not on file documented as of this encounter Visit Diagnoses Not on filedocumented in this encounter Care Teams Energy Efficiency Finance Manager Relationship Specialty Start Date End Date Stevo Damon MD PCP - General FAMILY PRACTICE 02/14/19 documented as of this encounter
[2025-06-14 14:46] LABS: Amylase 104 U/L (30-110)
== END 2025-06-14 14:08 | disposition home or self-care (01) ==
LOC: ANHSURGERY 14:09
PROVIDERS: PCP Family Medicine; Visit Provider Surgery
DX: K80.50 Calculus of bile duct without cholangitis or cholecystitis without obstruction (principal); Z01.818 Encounter for other preprocedural examination
CPT/HCPCS: 36415; 82150; 86850; 86900; 86901

== ENCOUNTER 2025-06-20 01:32 | Day surgery (SDC) | payer OTHER, SELFPAY ==
--- NOTE | 2025-06-12 16:56 | SUR.PREOP ---
[facility] has started construction of its new state of the art ER which will open Spring 2026. With this, we anticipate parking may be a challenge for some our surgical patients and families. Parking spaces are limited but are available for all Surgical, obstetrics, and ER patients sharing this lot. If you arrive and find you are having a hard time finding a parking space, please note that we understand the challenges, please drive around the hospital and park near Hospital Entrance 1. When you enter this entrance, you can ask a volunteer to direct or take you back to the surgical waiting area to check in. We appreciate everyone?s understanding of these expected challenges while we build for your future. Report to the Outpatient Waiting Room, entrance under the green pavilion located off [address], at time ___929____ on date ___06/20/2025____. Planned Procedure Time: __1130 .? Time changes happen often and if your time is changed the preop area will call you the afternoon before. - You and your visitor will be asked to self-screen and do not enter if you have any COVID symptoms. Please call surgeon if you need to reschedule. - A mask is optional within the hospital at this time. Patients may have clear liquids (water, carbonated beverages, clear teas, apple juice) until 3 hours prior to surgery with a maximum of 20 ounces. - No food from midnight until time of surgery and no smoking, or chewing tobacco (or any form of nicotine). No chewing gum, candy or mints. - Infants may have breast milk until 4 hours before surgery, formula 6 hours prior to surgery. - Children will be allowed to drink immediately following surgery.? If applicable, please bring a bottle or sippy cup to assist with drinking. Juice, water, soda, and popsicles are readily available.? For infants on formula, please bring formula the day of surgery.? Pacifiers are allowed. Take only the following medications with a SIP of water on the morning of surgery: __lexapro DO NOT STOP ANY OF YOUR OTHER PRESCRIPTION MEDICATIONS PRIOR TO SURGERY EXCEPT THE FOLLOWING Hold all vitamins and supplements for 3 days per anesthesiologist. Medications to discontinue per physician wegovy for 10 days Date to take last dose Please no make-up, nail rwandan, hairspray, perfume, deodorant, or body powder the day of surgery.? No jewelry (including any body piercings) or valuables the day of surgery, leave them at home.? Please take a shower or bath the night before, or the morning of, surgery with an antibacterial soap.? Wear comfortable, loose fitting clothing.? Children are encouraged to wear pajamas. - Jewelry must be removed prior to entering the operating room.? Rings and piercings that are not removed may be cut off. - The hospital will not accept responsibility for valuables.? - Please leave all valuables, including medications, at home the day of surgery. If you are going home after surgery, a licensed car pick up driver must drive you home.? - NO public transportation without another adult if you receive anesthesia. - We recommend that an adult stay with you for 24 hours following discharge. - We also recommend that you do not drive, make important decision, drink alcoholic beverages, or take any drugs that were not prescribed by your health care provider for at least 24 hours after your discharge time. For Pediatric surgeries, we recommend two adults accompany the child home. Follow any additional instructions given to you from your surgeon. Telephone instructions given to __patient and asked if any additional questions and then verbalized understanding. Patient advised to call surgeon office or pre surgery nurse liaison [phone] if any additional questions.
[2025-06-20] VITALS (11 sets, daily range): BP systolic 97–114; BP diastolic 48–74; PULSE 71–114; RESP 14–18; TEMP 36.1–36.3; O2SAT 95–100
--- OUTSIDE RECORDS SUMMARY | 2025-06-20 01:36 | XMS_ITS | Clinical Summary ---
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 Patient states her paternal grandfather also had colon cancer. Diarrhea 08/04/2023 Assessment & Plan (08/04/2023 10:43 AM LUNCHROOM WORKER): Chronic diarrhea for the past few years. [...] 09/12/2019 Assessment & Plan (09/12/2019 3:43 PM LUNCHROOM WORKER): Overall Condition: New Acute Problem Treatment: New Medication: Zofran Follow up PRN Lower abdominal pain 06/04/2019 Assessment & Plan (06/04/2019 1:10 PM CDT): Overall Condition: New Acute Problem Treatment: New Medication: Continue PPI. and Imaging: Pelvic Ultrasound and Industrial Court Magistrate Referral. Follow up PRN Psychophysiological insomnia 03/05/2019 [...] 02/04/2017 Assessment & Plan (10/09/2020 2:12 PM LUNCHROOM WORKER): Overall Condition New Diagnosis. Treatment: New Medication: [...] for resolution of rash, can use topical dbho-act-jxuilmi steroid cream and antihistamine such as Benadryl [...] Type Department Care Team Description 05/15/2025 Telephone [facility] Medical [facility] Family Medicine at [address] [place] [phone] Stevo Damon MD Referral Request 05/06/2025 1:00 PM CDT Office Visit [facility] Medical [facility] Family Medicine at [address] [place] [phone] Stevo Damon MD Biliary colic (Primary Dx) 05/03/2025 Telephone [facility] Family Medicine at [address] [place] [address] Stevo Damon MD Recommendation Request 05/02/2025 12:15 PM CDT Telemedicine [facility] Virtual Care [address] [place] [address] Rochelle Segura, EPIDEMIOLOGY INTERNSHIP RUQ abdominal pain (Primary Dx) 05/02/2025 Nurse Triage [facility] Family Medicine at [address] [place] [address] Stevo Damon MD from Last 3 Months [...] on file Legal Sex Female 5:35 AM LUNCHROOM WORKER Gender Identity Not on file Sexual Orientation [...] HPV Vaccines (1 - 3-dose series) 2016 Cervical Cancer Screening 04/15/2024 04/15/2023 Chlamydia and [...] Detected AMAURY GONZALEZ Comment:Testing performed by : [facility], [address] [place] [address]., [address] N. gonorrhoeae Not Detected Not Detected AMAURY GONZALEZ Comment: Interpretive Data Testing performed by the [facility]. This assay detects Chlamydia [...] last revised on 2019. Testing performed by: [facility], [address] [place] [address]., [address] Urine (None) 06/10/2023 6:42 PM CDT 06/10/2023 7:30 PM CDT Tati SANCHEZ LAB MICROBIOLOGY - GENERAL JULISSA CABEZAS Final Result AMAURY [address] [facility] Department [place] [address] * Pap with reflex to High Risk HPV and Genotyping (Cytology Component) (04/15/2023 9:47 AM CDT) Thin prep (Pap test) 04/15/2023 9:47 AM CDT 04/18/2023 9:47 AM CDT Narrative PATHOLOGY [facility] - 04/21/2023 11:57 AM CDT [facility] Department of Pathology [address] [place] [address] Final Report Note to Patients: This [...] the details. Patient Name: RHIANNON LANDERS Address: [address] [place] [address] Gender: F : 2000 (Age: 22) Service: Location: [facility] #: [id number] Patient Type: MHE SPECIMEN Taken: 04/15/2023 Received: 04/18/2023 Accessioned:: 04/19/2023 Reported: 04/21/2023 Physician(s): Saira Joe [facility] Diagnosis: SOURCE OF SPECIMEN Imaged Thinprep Pap Test w/ Reflex HPV - Industrial Court Magistrate Cytologic Material: STATEMENT OF ADEQUACY - Satisfactory for evaluation; endocervical/transformation zone component present GENERAL CATEGORIZATION: - Negative for intraepithelial lesion or malignancy ELLIE Diaz(ASCP)ELLIE Richardson(ASCP) Report Electronically Reviewed and Signed Out By ELLIE Richardson(ASCP) 04/21/2023 11:57:53Specimen(s) Received: A: Imaged Thinprep Pap Test w/ Reflex HPV - Industrial Court Magistrate Cytologic Material Clinical History: Last Menstrual Period: [...] determined by the Surgical Pathology Department at [facility] as part of an ongoing supervisor vendor quality program and in compliance with federally mandated [...] characteristics determined by the Surgical Pathology Department [facility]. It has not been cleared or approved by the U. S. Food and Drug Administration. Saira SAUNDERS LAB CYTOLOGY ORDERABLES Final Result Performing Organization Address City/State/[facility] Co de Phone Number [facility] from Last 3 Months or Most Recently Relevant to Health Maintenance Insurance [facility] PLUS [facility] PLUS [place] [id number] [facility] PLUS [place] [id number] Care Teams Venetian Blind Installer Relationship Specialty Start Date End Date Stevo Damon MD PCP - General Family Medicine 02/01/19
--- OUTSIDE RECORDS SUMMARY | 2025-06-20 01:36 | XMS_ITS | Encounter Summary ---
Author Organization [facility] Address [address] [place] [address] Care Team Providers Care Animal Treatment Investigator Name Role Phone Stveo Damon MD Primary Care Provider [phone] Encounter Details Date Type Department Care Team (Late st Contact Info) Description 10/18/2022 [employer] Message [employer] HEALTH INFORMATION MANAGEMENT [address] [place] [address] [employer], [facility] Provider Patient Name Change Request Social History [...] Coronavirus/COVID-19? No / Unsure 10/17/2022 12:26 PM MAGNETIC GRINDER OPERATOR documented as of this encounter Plan of Treatment Not on file documented as of this encounter Visit Diagnoses Not on filedocumented in this encounter Care Teams Animal Treatment Investigator Relationship Specialty Start Date End Date Stevo Damon MD PCP - General FAMILY PRACTICE 02/14/19 documented as of this encounter
--- OUTSIDE RECORDS SUMMARY | 2025-06-20 01:36 | XMS_ITS | Encounter Summary ---
Author Organization [facility] Address [address] [place] [address] Care Team Providers Care Sales Vice President Name Role Phone Stevo Damon MD Primary Care Provider [phone] Encounter Details Date Type Department Care Team (Late st Contact Info) Description 01/12/2021 Prep for Procedure [facility] [place] [address] Tom Oropeza MD [address] [place] [address] Social History Tobacco Use Types [...] DETECTED NOT DETECTED 01/14/2021 6:46 AM CDT [employer] [facility] Comment: A Not Detected (negative) test [...] providers and patients using the following websites: https://www.[employer].com/home/Covid-19/HCP/rc- qjdv-cyk6-gtuw-sheet.html https://www.[employer].com/home/Covid-19/Patients/ ei-jenq-xqj5-fact-sheet.html This test has been authorized by the FDA under an Emergency Use Authorization (EUA) for use by authorized laboratories. Due to the current public health emergency, [employer] is receiving a high volume of samples [...] about COVID-19 can be found at the [employer] website: www.[employer].com/Covid19. Test performed at [employer] [address] [id number] Director: KAREN VERGARA DO,MPH FIRST TEST UNKNOWN 01/13/2021 10:19 AM CDT [facility] EMPLOYED IN HEALTHCARE NO 01/13/2021 10:19 AM CDT [facility] SYMPTOMATIC DEFINED BY CDC UNKNOWN 01/13/2021 10:19 AM CDT [facility] DATE OF SYMPTOM ONSET NO 01/13/2021 11:03 AM CDT [facility] HOSPITALIZATION STATUS NO 01/13/2021 10:19 AM CDT [facility] PATIENT IN ICU NO 01/13/2021 10:19 AM CDT [facility] RESIDENT OF CONGREGATE CARE NO 01/13/2021 10:19 AM CDT [facility] UNKNOWN 01/13/2021 10:19 AM CDT [facility] PATIENT'S RACE WHITE OR 01/13/2021 10:19 AM CDT [facility] ETHNICITY NONHISPANIC 01/13/2021 10:19 AM CDT [facility] SOURCE (QST) NASOPHARYNGEAL SWAB 01/13/2021 10:19 AM CDT [facility] NASOPHARYNGEAL SWAB / Unknown 01/13/2021 10:05 AM CDT us Tom Oropeza MD MICROBIOLOGY - GENE RAL ORDERABLES Final Result [facility] [address] [facility] [address], [place] [phone] [employer] [facility] [address] [place] [address], documented in this encounter Visit Diagnoses Diagnosis Abdominal pain- Primary Abdominal pain, unspecified site documented in this encounter Additional Health Concerns Infection Onset Date Last Indicated Resolved Time COVID-19 Rule Out 01/13/2021 01/13/2021 01/14/2021 6:46 AM CDT documented as of this encounter Care Teams Sales Vice President Relationship Specialty Start Date End Date Stevo Damon MD PCP - General FAMILY PRACTICE 02/14/19 documented as of this encounter
--- OUTSIDE RECORDS SUMMARY | 2025-06-20 01:36 | XMS_ITS | Encounter Summary ---
Author Organization [facility] Address [facility] [place] [address] Care Team Providers Care Straightener Gun Parts Name Role Phone Stevo Damon MD Primary Care Provider [phone] Encounter Details Date Type Department Care Team (Late st Contact Info) Description 01/17/2020 [employer] [facility] Patient Accounts [address] [place] [address] [facility] Provider patient account balance Social History Tobacco [...] documented as of this encounter Care Teams Straightener Gun Parts Relationship Specialty Start Date End Date Stevo Damon MD PCP - General FAMILY PRACTICE 02/14/19 documented as of this encounter
--- OUTSIDE RECORDS SUMMARY | 2025-06-20 01:36 | XMS_ITS | Clinical Summary ---
Author Organization [facility] Address [address] [place] [address] Care Team Providers Care Cad Cam Programmer Name Role Phone Stevo Damon MD Primary Care Provider [phone] Allergies Active Allergy Reactions Criticality Noted Date [...] Comments Blood Pressure 105/54 11/08/2023 1:00 PM GOLD LEAF LABORER Pulse 100 11/08/2023 12:00 PM GOLD LEAF LABORER Temperature 36.5 C (97.7 F) 11/08/2023 9:01 AM GOLD LEAF LABORER Respiratory Rate 18 11/08/2023 12:00 PM GOLD LEAF LABORER Oxygen Saturation 100% 11/08/2023 1:00 PM GOLD LEAF LABORER Inhaled Oxygen Concentration - - Weight 61.2 kg (135 lb) 11/08/2023 9:01 AM GOLD LEAF LABORER Height 157.5 cm (5' 2) 11/08/2023 9:01 AM GOLD LEAF LABORER Body Mass Index 24.69 11/08/2023 9:01 AM GOLD LEAF LABORER Plan of Treatment Health Maintenance Due Date Last Done Comments Annual Physical 2004 DTaP, Tdap and Td Vaccines (6 - Tdap) 2012 05/09/2006, 12/17/2002, 12/17/2002, Additional history exists HPV Vaccines (1 - 3-dose series) 2016 Meningococcal B Vaccine (1 of 2 - Standard) 2017 Hepatitis C 2019 COVID-19 Vaccine ( season) 2025 Cervical Cancer Screening Pap Smear (Age 22 [...] patient's age to complete this topic Insurance [facility] Care Teams Cad Cam Programmer Relationship Specialty Start Date End Date Stevo Damon MD PCP - General FAMILY PRACTICE 02/14/19
--- NOTE | 2025-06-20 07:19 | WPDHPUPDATE1 ---
History and Physical Update Update Date/Time: 06/20/25 07:19 History and Physical has been reviewed, including an updated exam of the patient. There are NO changes in the patient's condition. Risks, benefits, and alternatives have been discussed and questions answered. Patient agrees to proceed with procedure.
[2025-06-20] MEDS: ACETAMINOPHEN 500 MG TABLET 1000 MG PO (10:05)
[2025-06-20] MEDS: LACTATED RINGERS 1,000 ML 30 ML IV CONT ×2 (10:10→12:58)
[2025-06-20] MEDS: KETOROLAC 15 MG/ML VIAL (*BKC) IV PUSH (10:15)
[2025-06-20] MEDS: INDOCYANINE GREEN 25 MG VIAL WITH DILUENT 3.75 MG IV PUSH (10:20)
[2025-06-20 10:29] LABS: BEDSIDEPREGUCG Negative (Negative)
--- NOTE | 2025-06-20 11:20 | WPDANESEPPF ---
Anes - Initial Pre Proc Eval Procedure: Operation Date: 06/20/25 11:30 Proposed Procedures p Robotic Cholecystectomy - Oralia Mathis MD Date/Time: 06/20/25 11:20 Surgeon: Oralia Mathis MD Pre Op Diagnosis: Biliary Colic Patient Data Age: 25 Gender: F Height: 1.57 m Weight: 54.9 kg Last Vital Signs Temp 97.2 F L 06/20/25 09:40 Pulse 76 06/20/25 09:40 Resp 16 06/20/25 09:40 BP 114/74 06/20/25 09:40 Pulse Ox 100 06/20/25 09:40 O2 Del Method Room Air 06/20/25 09:40 Allergies Allergy/AdvReac Type Severity Reaction Status Date / Time amoxicillin Allergy Intermediate Rash Verified 06/20/25 10:21 Penicillins Allergy Intermediate Rash Verified 06/20/25 10:21 Home Medications ?Medication ?Instructions ?Recorded ?Confirmed ?Type escitalopram oxalate 20 mg tablet 20 mg PO DAILY 06/04/25 06/20/25 History (Lexapro) methocarbamol 750 mg tablet 750 mg PO QHS 06/04/25 06/20/25 History trazodone 100 mg tablet 100 mg PO QHS PRN insomnia 06/04/25 06/12/25 History semaglutide (weight loss) 0.25 0.25 mg subcut WEEKLY 06/12/25 06/20/25 History mg/0.5 mL subcutaneous pen injector (Wegovy) NUTRAFOL See Rx Instructions .Route .COMPLEX 06/20/25 06/20/25 History ascorbic acid (vitamin C) 500 mg 500 mg PO DAILY 06/20/25 06/20/25 History tablet (C-500) Laboratory Tests 06/20/25 10:27 POC Urine HCG, Qual Negative (Negative) Patient hx anesthesia problems: post op nausea/vomiting Family hx anesthesia problems: none Results Review: All pre-operative results and documents have been reviewed as part of the pre-operative evaluation. [facility] Past Medical History Medical History IBS (irritable bowel syndrome) Surgical History Surgical History (Updated 06/04/25 @ 14:39 by Mallory Pierce MA) Hx of colonoscopy S/P appendectomy Family History Family History (Updated 06/04/25 @ 14:38 by Mallory Pierce MA) Mother Cancer, colon Liver cancer Social History Social History (Updated 06/04/25 @ 14:36 by Mallory Pierce MA) Smoking status: Never smoker Alcohol intake: never Substance use: never Substance use type: does not use Do You Feel Safe in your Home?: Yes Lack of Transportation: No Lack of Food: Never True Current Housing: I Have Housing Concerned About Future Housing: No Difficulty Paying Gas/Electric Bills: No Difficulty Paying for Meds: No Currently Unemployed: No Education: Associate Degree Difficulty w/ Childcare or Family Care: No Living arrangements: other Additional living arrangements comments: home with spouse Occupation/Education: occupation Additional occupation/education comments: [employer] Gender identity (if verbalized by the patient): Female Sexual Orientation (if Verbalized by the Patient): Straight or Heterosexual Spiritual care concerns: No Anes - Eval Final PreProcedure Day of Procedure 06/20/25 11:20 Patient weight: normal Heart: regular rate and rhythm Lungs: clear to auscultation Airway: Mallampati scale class II Neurological: alert and oriented Last oral intake: >/= 8 hours ASA classification: II Emergent: no Anesthetic plan: proceed Anesthesia type and monitoring: general ETT and standard monitoring Results Review: All pre-operative results and documents have been reviewed as part of the pre-operative evaluation. Informed Consent: The patient's anesthetic plan and its attendant risks and benefits were discussed with the patient/family/POA. Questions were solicited and answers provided to the satisfaction of the patient/family/POA.
[2025-06-20] MEDS: SCOPOLAMINE 1 MG PATCH 1 PATCH TRANSDERM (11:27)
[2025-06-20] MEDS: ceFAZolin 2 GM in SODIUM CHLORIDE 0.9% IV 50 ML 100 ML IVPB (11:29)
[2025-06-20] MEDS: BUPIVACAINE/EPINEPHRINE 0.5% 50 ML VIAL 30 ML INFILTRATE (12:16)
--- NOTE | 2025-06-20 12:35 | S_PTH ---
PATIENT: Rhiannon Landers LOC: [facility] U#:[id number] AGE/SX: 25/F ROOM: RE06/20/[address]: Oralia Mathis MD : 2000 BED: DIS: 06/20/2025 SPEC #: [id number] RECD: 06/20/25 13:33 STATUS: VICKY RECleo #: [id number] KANNAN: 06/20/25 12:[address]: Oralia Mathis DEPT: [facility] Surgical RECD BY: Kacy Strauss ENTERED: 06/20/25 13:33 SP TYPE: Surgical OTHR DR: Stevo Damon, Tissues: A - Gallbladder Procedures: Hematoxylin and Eosin Stain Gross and Microscopic Level 3
--- NOTE | 2025-06-20 12:41 | P.OP_ITS ---
Procedure Note - Detailed Date of Procedure 06/20/25 Pre-op Diagnosis biliary colic Post-op Diagnosis Same Procedure Performed Robotic assisted cholecystectomy Surgeon Oralia Mathis MD Anesthesia General and Local Indications 25-year-old female presenting with postprandial right upper quadrant pain, bloating, nausea. Workup, including imaging, significant for biliary colic. Findings Moderate cholecystitis Description of Procedure The patient was taken to the operating room and placed in the supine position. After adequate induction of general anesthesia, the patient was prepped and draped in the normal sterile fashion. A time-out was then done to verify the patient's identity, as well as the procedure being performed. I began by making a 8 mm incision in the periumbilical region. A Veress needle was then placed in the peritoneal cavity and CO2 gas was insufflated. After adequate pneumoperitoneum was achieved, the Veress needle was removed and a 8 mm Optiview trocar was placed under direct visualization. Once into the abdominal cavity, the introducer was removed and the laparoscope was placed through this trocar site. Under direct visualization, I placed a further 8 mm port in the left mid abdomen and 2 additional 8 mm ports in the right mid abdomen. The robot was then docked to these ports sites. I then went to the console. The gallbladder was then identified and noted to be moderately inflamed. I was able to place a grasper at the dome of the gallbladder and this was retracted up and over the liver. A 2nd retractor was used to grasp the infundibulum and retracted later ally. This allowed visualization and dissection of the triangle of Calot. There were some omental adhesions to the gallbladder and these were taken down with the cautery. I then began dissection around the triangle Calot. I first identified the cystic duct, I was able to visualize the entirety of the duct from its proximal insertion into the gallbladder to its distal junction with the common hepatic/common bile duct junction. I then used the firefly visualization at this point to confirm the anatomy. The proximal cystic duct was then further skeletonized, clipped, and transected. Next I visualized the cystic artery. Again the structure was skeletonized, clipped, and transected. I then again used firefly to confirm anatomy and no aberrant anatomy was noted. I then used the Bovie cautery to take down the peritoneal attachments of the gallbladder off the liver bed. Once the gallbladder specimen was completely detached, an Endo pouch was placed through the left 8 mm port site and the gallbladder specimen was placed in the endo-pouch and subsequently removed. Of note, I made a cholecystostomy and decompressed the gallbladder to facilitate removal. I then re-examined the right upper quadrant. Hemostasis was noted in the liver bed and the clips were noted to be in good position on both the duct and the artery. No other pathology was seen in the right upper quadrant. All instruments were then removed and the robot was undocked. The abdomen was then desufflated and all ports were removed. All port sites were then closed with 4-0 Monocryl subcuticular suture. Dermabond was placed on each was wound. The patient tolerated the procedure well and was extubated in the operating room postop. The patient will now be transferred to the recovery room in stable condition. Estimated Blood Loss 10 Drains No Packing No Pathology Yes Complications No immediate complications Condition Stable Disposition PACU [facility] Billing Surgery - Charge Forward: Surgery Billing
[2025-06-20] MEDS: fentaNYL CITRATE INJ (*CRX) 100 MCG/2 ML VIAL 25 MCG IV PUSH ×8 (13:22→15:12)
[2025-06-20] MEDS: oxyCODONE HCL (*CRX) 5 MG TAB IR PO (14:47)
== END 2025-06-20 15:40 | disposition home or self-care (01) ==
PROVIDERS: PCP Family Medicine; Visit Provider Surgery
PROC: 0FT44ZZ Resection of Gallbladder, Percutaneous Endoscopic Approach (ICD-10-PCS; CPT 47562; principal; 2025-06-20 11:30)
DX: K80.10 Calculus of gallbladder with chronic cholecystitis without obstruction (principal); K66.0 Peritoneal adhesions (postprocedural) (postinfection); K58.9 Irritable bowel syndrome, unspecified; Z79.85 Long-term (current) use of injectable non-insulin antidiabetic drugs; Z98.890 Other specified postprocedural states; Z80.0 Family history of malignant neoplasm of digestive organs
CPT/HCPCS: 47562; S2900; 88304; J0690; A9270; J1100; J1885; J2003; J2250; J2371; J2405; J2704; J3010; J7030; J7120